=== PATIENT | male | born 1955 | race Caucasian/White ===

== ENCOUNTER 2016-08-03 15:29 | Emergency (ER) | payer OTHER ==
[~2016-08-03] VITALS: Ht 172.7 cm; Wt 68.5 kg
[~2016-08-03 15:29] MED LIST: FER325 PO; GLIP2.5T14 PO; LACT20SO2 PO; MTF1000T PO; PANT40TA3 PO; PROP20TA4 PO; RIFA550T4 PO; SPIR100T PO
[2016-08-03 16:17] VITALS: Ht 172.7 cm; Wt 68.5 kg
[2016-08-03] MEDS ORDERED: ALBUTEROL/IPRATROPIUM (NEB) 3 ML AMP HHN STA (17:43)
--- NOTE | 2016-08-03 17:56 | ERD ---
ER Documentation Chief Complaint Date/Time DATE: 08/03/16 TIME: 17:48 Chief Complaint SOB,HX OF ASTHMA HPI This patient is a 61-year-old male with history of hypertension, type 2 diabetes , asthma presenting to the emergency department for shortness of breath, wheezing, and chest pain ongoing intermittently for the past month but worsening over the past week. Additionally the patient reports productive cough of green phlegm as well as tactile fevers. The patient is taken no ibuprofen or Tylenol at home for symptom relief. The patient does have an albuterol inhaler which he has been using as needed for wheezing with mild relief. The patient denies any urinary symptoms, nausea, vomiting, diarrhea, or other symptoms at this time. ROS All systems reviewed and are negative except as per history of present illness. Medications Home Meds Active Scripts Glipizide XL* (Glipizide XL*) 2.5 Mg Tab.er.24, 2.5 MG PO DAILY for 30 Days, TAB Prov:PATTI HARRISON . 07/09/15 Metformin* (Glucophage*) 1,000 Mg Tablet, 1000 MG PO WITH BREAKFAST DINNE, #60 TAB Prov:PATTI HARRISON . 07/09/15 Pantoprazole* (Protonix*) 40 Mg Tablet.dr, 40 MG PO BID for 30 Days, TAB Prov:PATTI HARRISON . 07/09/15 Rifaximin* (Xifaxan*) 550 Mg Tablet, 550 MG PO BID for 30 Days, TAB 1 Refill Prov:PATTI HARRISON . 07/09/15 Lactulose* (Lactulose*) 20 Gm/30 Ml Soln, 20 GM PO Q8 for 30 Days Prov:PATIT HARRISON . 07/09/15 Ferrous Sulfate* (Ferrous Sulfate*) 325 Mg Tabec, 325 MG PO BID for 30 Days, TAB Prov:PATTI HARRISON . 07/09/15 Spironolactone* (Aldactone*) 100 Mg Tablet, 50 MG PO DAILY, #30 TAB Prov:PATTI HARRISON . 07/09/15 Reported Medications Propranolol Hcl* (Propranolol Hcl*) 20 Mg Tablet, 20 MG PO BID, TAB 07/07/15 Allergies Allergies: Coded Allergies: No Known Allergy (Unverified , 08/03/16) PMhx/Soc History of Surgery: Yes (nasal surgery 1983) Anesthesia Reaction: No Hx Neurological Disorder: No Hx Respiratory Disorders: Yes (asthma) Hx Cardiac Disorders: Yes (htn) Hx Psychiatric Problems: No Hx Miscellaneous Medical Probl: Yes (dm ) Hx Alcohol Use: No Hx Substance Use: Yes (1982) Hx Tobacco Use: No Smoking Status: Never smoker FmHx Noncontributory for chief complaint. Physical Exam Vitals Vital Signs Date Time Temp Pulse Resp B/P Pulse Ox O2 Delivery O2 Flow Rate FiO2 08/03/16 16:17 98.9 97 18 119/58 98 Physical Exam INITIAL VITAL SIGNS: Reviewed by me. GENERAL: Alert and interactive. No acute distress. HEAD: Head is normocephalic and atraumatic. EYES: EOMI. No scleral icterus. No conjunctival injection. ENT: Moist mucosa. NECK: Supple. Full range of motion. RESPIRATORY: Mild inspiratory wheezing noted in the left upper lung field. There are no rhonchi or crackles noted in all lung trammell. CV: Regular rate and rhythm. Normal S1 S2. No S3 or S4. No murmurs. ABDOMEN: Soft, non-distended, non-tender. No guarding. No rebound. No masses. EXTREMITIES: No deformity. SKIN: Warm and dry. NEUROLOGIC: Alert and oriented x 4. Speech is normal. Moves all extremities equally. No motor or sensory deficits noted. Results 24 hrs Current Medications Medications (Trade) Dose Ordered Sig/Halle Route PRN Reason Start Time Stop Time Status Last Admin Dose Admin Albuterol/ Ipratropium (Duoneb) 3 ml ONCE STAT HHN 08/03/16 17:43 08/03/16 17:47 DC Dexamethasone (Decadron) 10 mg ONCE ONCE IM 08/03/16 18:00 08/03/16 18:01 DC 08/03/16 17:53 Procedures/MDM 61-year-old male presents secondary to complaints of wheezing and asthma exacerbation. On physical examination the patient's vitals are within normal limits. The patient's O2 saturation is 98% on room air. I have ordered a chest x-ray and EKG looking for any signs of cardiopulmonary abnormalities or acute coronary ischemia. I have ordered a breathing treatment in the department and the patient was feeling improved afterwards. The primary diagnosis is asthma exacerbation. The patient was given 10 mg IM Decadron in the department. Radiology: Departure Diagnosis: Primary Impression: Asthma exacerbation Condition: Stable Patient Instructions: Asthma Additional Instructions: Follow-up with your primary care physician within 1 week. Return to the emergency department immediately should you have any new or worsening symptoms, uncontrolled fevers, or other unexplained symptoms. Take all medications as directed. DAVI OQUENDO PA-C Aug 03, 2016 17:56
[2016-08-03] MEDS ORDERED: DEXAMETHASONE 10 MG/ML 1 ML INJ IM ONE (18:00)
[2016-08-03] MEDS ORDERED: ALBUTEROL 0.5% (NEB) 2.5 MG/0.5 ML AMP INH STA (18:19)
[2016-08-03] MEDS ORDERED: IPRATROPIUM (NEB) 0.5 MG/2.5 ML AMP INH STA (18:19)
--- NOTE | 2016-08-03 18:32 | RADRPT ---
PROCEDURE: XR Chest AP portable CLINICAL INDICATION: Cough, wheezing TECHNIQUE: An AP portable radiograph of the chest was submitted. COMPARISON: None. FINDINGS: Support Hardware: None Cardiovascular: The heart is upper normal in size and the pulmonary vasculature is upper normal . Lung Trammell: Parahilar interstitial prominence is evident while the lung trammell are otherwise clear. Pleural Spaces: No pneumothorax or pleural effusion is identified. Osseous Structures: The osseous structures appear intact. Soft Tissues: The soft tissues appear unremarkable. IMPRESSION: 1. Parahilar interstitial prominence raising the possibility of asthma or viral or respiratory trac t infection. 2. Otherwise, unremarkable portable chest. Physician Stephen Date Time Electronically viewed and signed by Physician Stephen on 08/03/2016 18:32 /
[2016-08-03 18:39] LABS: BASOPHILS % 0.4 % (0.0-2.0); EOSINOPHILS # 0.5 10^3/ul (0.0-0.5); EOSINOPHILS % 9.6 % (0.0-7.0); HEMOGLOBIN 10.2 g/dl (14.0-18.0); LYMPHOCYTES # 1.3 10^3/ul (0.8-2.9); LYMPHOCYTES % 24.7 % (15.0-51.0); MEAN CORPUSCULAR HEMOGLOBIN 21.4 pg (29.0-33.0); MEAN CORPUSCULAR HGB CONC 31.9 g/dl (32.0-37.0); MEAN CORPUSCULAR VOLUME 67.2 fl (82.0-101.0); MEAN PLATELET VOLUME 8.2 fl (7.4-10.4); MONOCYTE # 0.5 10^3/ul (0.3-0.9); MONOCYTES % 9.8 % (0.0-11.0); NEUTROPHIL # 2.9 10^3/ul (1.6-7.5); NEUTROPHILS % 55.5 % (39.0-77.0); PLATELET COUNT 217 10^3/UL (140-440); RED BLOOD COUNT 4.75 10^6/ul (4.70-6.10); RED CELL DISTRIBUTION WIDTH 17.8 % (11.5-14.5); UNCORRECTED WBC 5.2 10^3/ul (4.8-10.8); WHITE BLOOD COUNT 5.2 10^3/ul (4.8-10.8)
[2016-08-03 18:40] LABS: ALBUMIN 3.9 g/dl (3.3-4.9)
[2016-08-03 18:41] LABS: POTASSIUM 5.1 mmol/L (3.5-5.1)
[2016-08-03 18:43] LABS: BILIRUBIN,INDIRECT 0.3 mg/dl (0-1.1); BILIRUBIN,TOTAL 0.3 mg/dl (0.2-1.3); CONDITION 1; CREATININE 0.58 mg/dl (0.61-1.24); LH ANALYZER COMMENTS 1; NUCLEATED RED BLOOD CELLS # 0.1 10^3/ul (0.0-0.0)
[2016-08-03 18:44] LABS: ALBUMIN/GLOBULIN RATIO 0.88; TOTAL PROTEIN 8.3 g/dl (6.1-8.1)
[2016-08-03 18:56] LABS: TROPONIN-I 0.015 ng/ml (0.00-0.12)
[2016-08-03] MEDS ORDERED: PRED20TA PO (19:12)
[2016-08-03] MEDS ORDERED: ALBU8.5H3 INH (19:12)
--- NOTE | 2016-08-03 19:18 | ERD ---
ER Documentation Chief Complaint Date/Time DATE: 08/03/16 TIME: 19:13 Chief Complaint SOB,HX OF ASTHMA HPI 61-year-old man with multiple medical conditions including asthma presents with shortness of breath 2 days. Patient ran out of his albuterol pump. He denies fevers or chills, no recent weight loss, no exertional chest pain, no calf or leg swelling, no abdominal pain, patient denies melena or blood per rectum. ROS All systems reviewed and are negative except as per history of present illness. Medications Home Meds Active Scripts Prednisone* (Prednisone*) 20 Mg Tab, 20 MG PO DAILY for 2 Days, TAB Prov:ADEN OSHEA MD 08/03/16 Albuterol Sulfate* (Proair HFA*) 8.5 Gm Hfa.aer.ad, 2 PUFF INH Q6H Y for WHEEZING AND SOB, #1 INHALER Prov:ADEN OSHEA MD 08/03/16 Glipizide XL* (Glipizide XL*) 2.5 Mg Tab.er.24, 2.5 MG PO DAILY for 30 Days, TAB Prov:PATTI HARRISON 07/09/15 Metformin* (Glucophage*) 1,000 Mg Tablet, 1000 MG PO WITH BREAKFAST DINNE, #60 TAB Prov:PATTI HARRISON 07/09/15 Pantoprazole* (Protonix*) 40 Mg Tablet.dr, 40 MG PO BID for 30 Days, TAB Prov:PATTI HARRISON 07/09/15 Rifaximin* (Xifaxan*) 550 Mg Tablet, 550 MG PO BID for 30 Days, TAB 1 Refill Prov:PATTI HARRISON 07/09/15 Lactulose* (Lactulose*) 20 Gm/30 Ml Soln, 20 GM PO Q8 for 30 Days Prov:PATTI HARRISON 07/09/15 Ferrous Sulfate* (Ferrous Sulfate*) 325 Mg Tabec, 325 MG PO BID for 30 Days, TAB Prov:PATTI HARRISON 07/09/15 Spironolactone* (Aldactone*) 100 Mg Tablet, 50 MG PO DAILY, #30 TAB Prov:PATTI HARRISON 07/09/15 Reported Medications Propranolol Hcl* (Propranolol Hcl*) 20 Mg Tablet, 20 MG PO BID, TAB 07/07/15 Allergies Allergies: Coded Allergies: No Known Allergy (Unverified , 08/03/16) PMhx/Soc Asthma, alcoholic cirrhosis, previous alcoholism, diabetes mellitus, hypertension, chronic transaminitis, anemia, erosive esophagitis and gastritis History of Surgery: Yes (nasal surgery 1983) Anesthesia Reaction: No Hx Neurological Disorder: No Hx Respiratory Disorders: Yes (asthma) Hx Cardiac Disorders: Yes (htn) Hx Psychiatric Problems: No Hx Miscellaneous Medical Probl: Yes (dm ) Hx Alcohol Use: No Hx Substance Use: Yes (1982) Hx Tobacco Use: No Smoking Status: Former smoker FmHx Family History: No diabetes Physical Exam Vitals Vital Signs Date Time Temp Pulse Resp B/P Pulse Ox O2 Delivery O2 Flow Rate FiO2 08/03/16 19:05 100 2.0 08/03/16 19:03 68 20 100 Nasal Cannula 2.0 08/03/16 16:17 98.9 97 18 119/58 98 Physical Exam GENERAL: Well-developed, well-nourished, well-hydrated, appears dehydrated. Afebrile HEENT: Dry mucous membranes, pink conjunctiva, no cervical spine tenderness or step-off deformities, no goiter, no jaundice or icterus, extraocular movements intact without pain. No submandibular induration, and no pharyngeal erythema NEURO: Alert and oriented 3, cranial nerves II through XII intact bilaterally, pupils equal round reactive to light, no focal deficits or facial asymmetry, sensation intact distally Strength 5/5 in upper and lower extremities bilaterally CARDIAC: Regular rate and rhythm, no murmurs rubs or gallops LUNGS: Dense wheezes bilaterally, no crackles or stridor ABDOMEN: Soft nontender, no guarding, no rigidity, no rebound, no psoas sign no obturator sign. Normoactive bowel sounds SKIN: Warm and dry to touch, no abrasions, contusions, or hematomas, no lacerations, no ecchymosis, no target lesions, and without ulcers EXTREMITIES: No clubbing cyanosis or edema, calves are bilaterally symmetrical, no Homans sign, no popliteal cord sign. Distal pulses equal and bilateral PSYCH: Normal affect without agitation or irritability Result Diagram: 08/03/161 08/03/16 1811 Results 24 hrs Laboratory Tests Test 08/03/16 18:11 Alanine Aminotransferase (ALT/SGPT) 120IU/L Albumin 3.9g/dl Albumin/Globulin Ratio 0.88 Alkaline Phosphatase 99IU/L Anion Gap 17 Aspartate Amino Transf (AST/SGOT) 108IU/L B-Type Natriuretic Peptide 57PG/ML Basophils # 0.010^3/ul Basophils % 0.4% Blood Morphology Comment Blood Urea Nitrogen 13mg/dl Calcium Level 9.0mg/dl Carbon Dioxide Level 28mmol/L Chloride Level 102mmol/L Creatinine 0.58mg/dl Direct Bilirubin 0.00mg/dl Eosinophils # 0.510^3/ul Eosinophils % 9.6% Globulin 4.40g/dl Glucose Level 234mg/dl Hematocrit 32.0% Hemoglobin 10.2g/dl Indirect Bilirubin 0.3mg/dl Lipase 92U/L Lymphocytes # 1.310^3/ul Lymphocytes % 24.7% Mean Corpuscular Hemoglobin 21.4pg Mean Corpuscular Hemoglobin Concent 31.9g/dl Mean Corpuscular Volume 67.2fl Mean Platelet Volume 8.2fl Monocytes # 0.510^3/ul Monocytes % 9.8% Neutrophils # 2.910^3/ul Neutrophils % 55.5% Nucleated Red Blood Cells # 0.110^3/ul Nucleated Red Blood Cells % 2.0/100WBC Platelet Count 01879^3/UL Potassium Level 5.1mmol/L Red Blood Count 4.7510^6/ul Red Cell Distribution Width 17.8% Sodium Level 142mmol/L Total Bilirubin 0.3mg/dl Total Protein 8.3g/dl Troponin I 0.015ng/ml White Blood Count 5.210^3/ul Current Medications Medications (Trade) Dose Ordered Sig/Halle Route PRN Reason Start Time Stop Time Status Last Admin Dose Admin Albuterol/ Ipratropium (Duoneb) 3 ml ONCE STAT HHN 08/03/16 17:43 08/03/16 18:21 DC Dexamethasone (Decadron) 10 mg ONCE ONCE IM 08/03/16 18:00 08/03/16 18:01 DC 08/03/16 17:53 Albuterol (Proventil 0.5% (Neb)) 10 mg ONCE STAT INH 08/03/16 18:19 08/03/16 18:21 DC 08/03/16 18:58 Ipratropium Alkol (Atrovent 0.02% (Neb)) 1 mg ONCE STAT INH 08/03/16 18:19 08/03/16 18:21 DC 08/03/16 18:58 Procedures/MDM IV line was established patient was placed on school bus monitor rhythm strip revealed a sinus rhythm at about 70 bpm with upright P and T waves. Patient was afebrile. I administered albuterol 10 mg via nebulizer, ipratropium 1 mg via nebulizer, and dexamethasone 10 mg intramuscular injection. Chest X-ray 1V Interpreted by me: Soft Tissue: No acute abnormalities Bones: No acute abnormalities Mediastinum/Cardiac Silhouette/Lungs: No acute abnormalities EKG performed, read by me revealed a normal sinus rhythm at 74 bpm, normal axis , narrow QRS complex with evidence of left ventricular hypertrophy in precordial leads. CBC revealed mild anemia with a hemoglobin of 10, electrolytes were unremarkable , liver function tests revealed transaminitis, BNP was low, troponin was negative. Lipase was normal. Pulmonary exam was repeated after medications were administered and just prior to discharge. Respiratory rate was 16 breaths per minute and normal, lung sounds were clear without wheezing. Vital signs remained normal. Differential diagnoses considered, included but not limited to acute coronary syndrome, pulmonary embolism, aortic dissection, abdominal aortic aneurysm, sepsis, stroke, meningitis, encephalitis, pneumonia, appendicitis, cholecystitis , bowel obstruction, pyelonephritis, nephrolithiasis, cystitis, as well as metabolic, hematologic, and electrolyte abnormalities. As well as abscess, cellulitis, fractures, and dislocations. Patient feels much better at this time, and vital signs are normal, symptoms have improved. I did give strict instructions to return to the ED if symptoms continue or worsen, patient will otherwise follow-up with primary care physician. Patient understood instructions and agreed to plan. Departure Diagnosis: Primary Impression: Asthma exacerbation Additional Impression: Dehydration Condition: Good Patient Instructions: Asthma Additional Instructions: Follow-up with your primary care physician within 1 week. Return to the emergency department immediately should you have any new or worsening symptoms, uncontrolled fevers, or other unexplained symptoms. Take all medications as directed. ADEN OSHEA MD Aug 03, 2016 19:18
[2016-08-03] MEDS ORDERED: OMEP20CA16 PO (19:23)
[2016-08-03] MEDS ORDERED: MOME13HF2 INHALATION (19:23)
[2016-08-03] MEDS ORDERED: FER325 PO (19:29)
[2016-08-03] MEDS ORDERED: PROP20TA4 PO (19:33)
[2016-08-03 20:01] VITALS: BP 109/56; PULSE 79; RESP 19; TEMP 98.6
== END 2016-08-03 20:02 | disposition home or self-care (01) ==
LOC: FTE 15:29 → E/R 20:02
DX: J45.901 Unspecified asthma with (acute) exacerbation (principal); E86.0 Dehydration; I10 Essential (primary) hypertension; E11.9 Type 2 diabetes mellitus without complications; Z79.84 Long term (current) use of oral hypoglycemic drugs; Z87.891 Personal history of nicotine dependence
CPT/HCPCS: 71010; 80053; 83690; 83880; 84484; 85025; 93005; 94644; J1100; Z7502; Z7610

== ENCOUNTER 2016-08-07 11:16 | Emergency (ER) | payer OTHER ==
[~2016-08-07] VITALS: Wt 74.5 kg
[~2016-08-07 11:16] MED LIST changes: +ALBU8.5H3 INH; -GLIP2.5T14 PO; -LACT20SO2 PO; +MOME13HF2 INHALATION; +OMEP20CA16 PO; -PANT40TA3 PO; +PRED20TA PO; -RIFA550T4 PO; -SPIR100T PO
[2016-08-07] MEDS ORDERED: SOD CHLORIDE 0.9% 1,000 ML IV STA (11:34)
[2016-08-07] MEDS ORDERED: ALBUTEROL 0.5% (NEB) 2.5 MG/0.5 ML AMP INH STA (11:34)
[2016-08-07 12:23] LABS: BASOPHIL # 0.1 10^3/ul (0.0-0.1); BASOPHILS % 0.9 % (0.0-2.0); EOSINOPHILS # 0.2 10^3/ul (0.0-0.5); EOSINOPHILS % 2.3 % (0.0-7.0); HEMATOCRIT 31.6 % (42.0-52.0); LYMPHOCYTES # 1.4 10^3/ul (0.8-2.9); LYMPHOCYTES % 19.1 % (15.0-51.0); MEAN CORPUSCULAR HGB CONC 31.5 g/dl (32.0-37.0); MEAN CORPUSCULAR VOLUME 66.5 fl (82.0-101.0); MEAN PLATELET VOLUME 9.5 fl (7.4-10.4); MONOCYTE # 0.9 10^3/ul (0.3-0.9); MONOCYTES % 11.5 % (0.0-11.0); NEUTROPHIL # 4.9 10^3/ul (1.6-7.5); NEUTROPHILS % 66.2 % (39.0-77.0); NUCLEATED RED BLOOD CELLS% 3.2 /100WBC (0.0-0.0); PLATELET COUNT 188 10^3/UL (140-440); RED BLOOD COUNT 4.75 10^6/ul (4.70-6.10); RED CELL DISTRIBUTION WIDTH 17.7 % (11.5-14.5); UNCORRECTED WBC 7.4 10^3/ul (4.8-10.8); WHITE BLOOD COUNT 7.4 10^3/ul (4.8-10.8)
[2016-08-07 12:27] LABS: ALBUMIN 3.7 g/dl (3.3-4.9); CHLORIDE 97 mmol/L (97-110)
[2016-08-07 12:28] LABS: POTASSIUM 4.4 mmol/L (3.5-5.1); SODIUM 136 mmol/L (135-144)
[2016-08-07 12:30] LABS: ALANINE AMINOTRANSFERASE 80 IU/L (13-69); ALBUMIN/GLOBULIN RATIO 0.88; ALKALINE PHOSPHATASE 117 IU/L (42-121); ANION GAP 15 (8-16); ASPARTATE AMINO TRANSFERASE 43 IU/L (15-46); BILIRUBIN,INDIRECT 0.5 mg/dl (0-1.1); BILIRUBIN,TOTAL 0.5 mg/dl (0.2-1.3); BLOOD UREA NITROGEN 11 mg/dl (7-20); CARBON DIOXIDE 28 mmol/L (21-31); CREATININE 0.55 mg/dl (0.61-1.24); GLUCOSE 384 mg/dl (70-220); TOTAL PROTEIN 7.9 g/dl (6.1-8.1)
[2016-08-07 12:32] LABS: NUCLEATED RED BLOOD CELLS # 0.2 10^3/ul (0.0-0.0)
[2016-08-07 12:33] LABS: CONDITION 1; LH ANALYZER COMMENTS 1; SUSPECT 1
[2016-08-07 12:44] LABS: TROPONIN-I < 0.012 ng/ml (0.00-0.12)
[2016-08-07] MEDS ORDERED: SOD CHLORIDE 0.9% 100 ML ONE (12:45)
[2016-08-07] MEDS ORDERED: IOHEXOL 100 ML ONE (12:45)
--- NOTE | 2016-08-07 13:43 | RADRPT ---
PROCEDURE: CTA Chest and pulmonary angiogram. CLINICAL INDICATION: Chest pain and shortness of breath. TECHNIQUE: CT scan of the chest and CT pulmonary angiogram was performed on a multidetector high-r [employer] CT scanner. High-resolution thin slice 2D coronal and sagittal imaging was obtained from the axial source images. Post processed 3-D images were not acquired. The patient was examined foll owing the uncomplicated intravenous administration of 75 cc of Omnipaque-[id number]. The images were review ed on a PACS workstation. The total exam CTDI equals 13.4 mGy and the total exam DLP equals 584 mGy- cm. COMPARISON: No prior studies are available for comparison. FINDINGS: CT chest: Patchy infiltrates in the anterior right upper lobe. There is plate-like atelectasis or linear scarring in the left lung apex. There is plate-like atelectasis or linear scarring in the superior segment of the left lower lobe. There is subtle, patchy infiltrate in the posterior left lower lobe. There is a 3.7 x 2.5 cm thin-walled cavitary lesion with air-fluid level in the inferior aspect of t he lingula of left upper lobe. There is no evidence of pleural effusion or pneumothorax. The central tracheobronchial tree is clear. The mediastinum is unremarkable without evidence for mass or lymphadenopathy. The heart size is normal without pericardial thickening or effusion. The axillary, subpectoral, and supraclavicular regions are unremarkable. Imaging of the upper abdomen shows no acute abnormality. Heterogeneous enhancement of the liver and spleen is likely due to early arterial phase enhancement There is a small hiatal hernia. The chest wall structures are unremarkable. There is an 8 mm low density focus with trabecular condensation in the inferior endplate of T10, lik jacqui a hemangioma. The osseous structures are otherwise unremarkable CT angiogram: The aorta is normal in caliber and configuration. There is no evidence of aortic aneurysm or dissection. No pulmonary artery filling defect is present to suggest pulmonary embolism. No adherent thrombus or pulmonary web is identified. The pulmonary arteries are normal in caliber and morphology. There is no evidence for pulmonary arterial hypertension. IMPRESSION: 1. No evidence of pulmonary embolism, aortic aneurysm or dissection. 2. 3.7 cm thin-walled cavitary lesion in the lingula of left upper lobe. Differential diagnosis fa vors granulomatous disease but also includes cavitary neoplasm and lung abscess. 3. Patchy bilateral upper lobe infiltrates. Differential diagnosis includes granulomatous disease and acute bacterial pneumonia. RPTAT: II .Geronimo Stanley MD, Date Time Electronically viewed and signed by .Geronimo Stanley MD, on 08/07/2016 13:42 .M/
[2016-08-07] MEDS ORDERED: AZIT500T3 PO (13:59)
[2016-08-07] MEDS ORDERED: CEFTRIAXONE 1 GM/50 ML (PMX) 50 ML IVPB ONE (14:00)
--- NOTE | 2016-08-07 14:07 | ERD ---
ER Documentation Chief Complaint Date/Time DATE: 08/07/16 TIME: 14:03 Chief Complaint chest pain and pressure for the past week. mild sob and tightness HPI This is a 61-year-old man presents with continued sharp nonexertional nonradiating chest pain and pressure which shortness of breath and wheezing. He does have a history of asthma and states this feels similar to his previous symptoms. He was seen and evaluated about 4 days ago in this emergency department on a workup including chest x-ray was completely negative, he was discharged after bronchodilator therapy and after his symptoms resolve. He states since discharge he did not fill the prescriptions that were given to him 4 days ago, he has had no fevers or chills, no vomiting or diarrhea, no dizziness or loss of consciousness, no headache or blurry vision, no calf or leg swelling. ROS All systems reviewed and are negative except as per history of present illness. Medications Home Meds Active Scripts Azithromycin* (Zithromax*) 500 Mg Tablet, 500 MG PO DAILY for 6 Days, TAB Prov:ADEN OSHEA MD 08/07/16 Albuterol Sulfate* (Proair HFA*) 8.5 Gm Hfa.aer.ad, 2 PUFF INH Q6H Y for WHEEZING AND SOB, #1 INHALER Prov:ADEN OSHEA MD 08/03/16 Metformin* (Glucophage*) 1,000 Mg Tablet, 1000 MG PO WITH BREAKFAST DINNE, #60 TAB Prov:PATTI HARRISON 07/09/15 Reported Medications Propranolol Hcl* (Propranolol Hcl*) 20 Mg Tablet, 20 MG PO BID, TAB 08/03/16 Ferrous Sulfate* (Ferrous Sulfate*) 325 Mg Tabec, 325 MG PO TID, TAB 08/03/16 Mometasone-Formoterol (Dulera) 100-5 Mcg - 13 Gm Hfa.aer.ad, 2 PUFFS INHALATION BID, #1 INHALER 08/03/16 Omeprazole* (Omeprazole*) 20 Mg Capsule.dr, 20 MG PO DAILY, #30 CAP 08/03/16 Discontinued Reported Medications Propranolol Hcl* (Propranolol Hcl*) 20 Mg Tablet, 20 MG PO BID, TAB 07/07/15 Discontinued Scripts Prednisone* (Prednisone*) 20 Mg Tab, 20 MG PO DAILY for 2 Days, TAB Prov:ADEN OSHEA MD 08/03/16 Glipizide XL* (Glipizide XL*) 2.5 Mg Tab.er.24, 2.5 MG PO DAILY for 30 Days, TAB Prov:PATTI HARRISON. 07/09/15 Pantoprazole* (Protonix*) 40 Mg Tablet.dr, 40 MG PO BID for 30 Days, TAB Prov:PATTI HARRISON . 07/09/15 Rifaximin* (Xifaxan*) 550 Mg Tablet, 550 MG PO BID for 30 Days, TAB 1 Refill Prov:PATTI HARRISON 07/09/15 Lactulose* (Lactulose*) 20 Gm/30 Ml Soln, 20 GM PO Q8 for 30 Days Prov:PATTI HARRISON 07/09/15 Ferrous Sulfate* (Ferrous Sulfate*) 325 Mg Tabec, 325 MG PO BID for 30 Days, TAB Prov:PATTI HARRISON 07/09/15 Spironolactone* (Aldactone*) 100 Mg Tablet, 50 MG PO DAILY, #30 TAB Prov:PATTI HARRISON. 07/09/15 Allergies Allergies: Coded Allergies: No Known Allergy (Unverified , 08/07/16) PMhx/Soc Asthma, hypertension, diabetes mellitus, alcoholism, cirrhosis, chronic gastritis and esophagitis, medication noncompliance History of Surgery: Yes (nasal surgery 1983) Anesthesia Reaction: No Hx Neurological Disorder: No Hx Respiratory Disorders: Yes (asthma) Hx Cardiac Disorders: Yes (htn) Hx Psychiatric Problems: No Hx Miscellaneous Medical Probl: Yes (dm ) Hx Alcohol Use: No Hx Substance Use: Yes (1982) Hx Tobacco Use: No Smoking Status: Never smoker FmHx Family History: No diabetes Physical Exam Vitals Vital Signs Date Time Temp Pulse Resp B/P Pulse Ox O2 Delivery O2 Flow Rate FiO2 08/07/16 14:08 80 18 140/80 98 08/07/16 13:13 Nasal Cannula 08/07/16 11:51 83 26 99 21 08/07/16 11:22 98.5 89 20 132/76 100 Physical Exam GENERAL: Well-developed, well-nourished, well-hydrated, in no apparent distress , looks nontoxic in appearance. Afebrile HEENT: Moist mucous membranes, pink conjunctiva, no cervical spine tenderness or step-off deformities, no goiter, no jaundice or icterus, extraocular movements intact without pain. No submandibular induration, and no pharyngeal erythema NEURO: Alert and oriented 3, cranial nerves II through XII intact bilaterally, pupils equal round reactive to light, no focal deficits or facial asymmetry, sensation intact distally Strength 5/5 in upper and lower extremities bilaterally CARDIAC: Regular rate and rhythm, no murmurs rubs or gallops LUNGS: Mild wheezing bilaterally, no crackles or stridor ABDOMEN: Soft nontender, no guarding, no rigidity, no rebound, no psoas sign no obturator sign. Normoactive bowel sounds SKIN: Warm and dry to touch, no abrasions, contusions, or hematomas, no lacerations, no ecchymosis, no target lesions, and without ulcers EXTREMITIES: No clubbing cyanosis or edema, calves are bilaterally symmetrical, no Homans sign, no popliteal cord sign. Distal pulses equal and bilateral PSYCH: Normal affect without agitation or irritability Result Diagram: 08/07/16 1210 08/07/16 1210 Results 24 hrs Laboratory Tests Test 08/07/16 12:10 Alanine Aminotransferase (ALT/SGPT) 80IU/L Albumin 3.7g/dl Albumin/Globulin Ratio 0.88 Alkaline Phosphatase 117IU/L Anion Gap 15 Aspartate Amino Transf (AST/SGOT) 43IU/L Basophils # 0.110^3/ul Basophils % 0.9% Blood Morphology Comment Blood Urea Nitrogen 11mg/dl Calcium Level 9.0mg/dl Carbon Dioxide Level 28mmol/L Chloride Level 97mmol/L Creatinine 0.55mg/dl Direct Bilirubin 0.00mg/dl Eosinophils # 0.210^3/ul Eosinophils % 2.3% Globulin 4.20g/dl Glucose Level 384mg/dl Hematocrit 31.6% Hemoglobin 10.0g/dl Indirect Bilirubin 0.5mg/dl Lipase 99U/L Lymphocytes # 1.410^3/ul Lymphocytes % 19.1% Mean Corpuscular Hemoglobin 21.0pg Mean Corpuscular Hemoglobin Concent 31.5g/dl Mean Corpuscular Volume 66.5fl Mean Platelet Volume 9.5fl Monocytes # 0.910^3/ul Monocytes % 11.5% Neutrophils # 4.910^3/ul Neutrophils % 66.2% Nucleated Red Blood Cells # 0.210^3/ul Nucleated Red Blood Cells % 3.2/100WBC Platelet Count 46280^3/UL Potassium Level 4.4mmol/L Red Blood Count 4.7510^6/ul Red Cell Distribution Width 17.7% Sodium Level 136mmol/L Total Bilirubin 0.5mg/dl Total Protein 7.9g/dl Troponin I < 0.012ng/ml White Blood Count 7.410^3/ul Current Medications Medications (Trade) Dose Ordered Sig/Halle Route PRN Reason Start Time Stop Time Status Last Admin Dose Admin Albuterol 10 mg 10 mg ONCE STAT INH 08/07/16 11:34 08/07/16 13:52 DC 08/07/16 11:51 Sodium Chloride 1,000 ml @ 1,000 mls/hr Q1H STAT IV 08/07/16 11:34 08/07/16 13:53 DC 08/07/16 12:24 Iohexol 100 ml @ ud STK-MED ONCE .ROUTE 08/07/16 12:45 08/07/16 12:46 DC 08/07/16 13:09 Sodium Chloride 100 ml @ ud STK-MED ONCE .ROUTE 08/07/16 12:45 08/07/16 12:46 DC 08/07/16 13:09 Ceftriaxone Sodium (Rocephin) 50 ml @ 100 mls/hr ONCE ONCE IVPB 08/07/16 14:00 08/07/16 14:29 DC 08/07/16 14:03 Procedures/MDM IV line was established patient was placed on potline monitor rhythm strip revealed a sinus rhythm at about 80 bpm with upright P and T waves. Patient was afebrile. EKG performed, read by me revealed a normal sinus rhythm 87 bpm, normal axis, narrow QRS complex with evidence of left ventricular hypertrophy in precordial leads and peak T waves, although this is unchanged from his previous EKG. I reviewed the chest x-ray which was performed just 4 days ago, it was fairly unremarkable without acute infiltrates or pneumothorax. CT angiogram of the chest was performed there was no acute pulmonary embolism although there was diffuse granulomatous disease and questionable infiltrates bilaterally in the upper lung zones. I have low suspicion for acute bacterial pneumonia although given his past medical history and the fact that he has continued pulmonary symptoms, and this is his second visit over the last 4 days I will treat him as an outpatient with oral antibiotics CURB 65 Severity Score = 0. Placing the patient in a low risk group with a 30 day mortality rate of about 0.6%, which is a good indicator that the patient will benefit from outpatient management and oral antibiotics. CBC was unremarkable, electrolyte revealed a BUN/creatinine of 11/0.6, blood sugar elevated at 384, liver function tests were normal, troponin was negative. I treated him here with 1 L normal saline intravenously, albuterol 10 mg via nebulizer, as well as ceftriaxone 1 g IV. Patient can be managed as an outpatient and I recommended he fill the prescriptions that were provided to him 4 days ago and fill the prescriptions given to him today. We will manage him with outpatient antibiotics Differential diagnoses considered, included but not limited to acute coronary syndrome, pulmonary embolism, aortic dissection, abdominal aortic aneurysm, sepsis, stroke, meningitis, encephalitis, pneumonia, appendicitis, cholecystitis , bowel obstruction, pyelonephritis, nephrolithiasis, cystitis, as well as metabolic, hematologic, and electrolyte abnormalities. As well as abscess, cellulitis, fractures, and dislocations. Patient feels much better at this time, and vital signs are normal, symptoms have improved. I did give strict instructions to return to the ED if symptoms continue or worsen, patient will otherwise follow-up with primary care physician. Patient understood instructions and agreed to plan. Departure Diagnosis: Primary Impression: Pneumonia Pneumonia type: due to unspecified organism Laterality: bilateral Lung location: upper lobe of lung Qualified Code: J18.9 - Pneumonia of both upper lobes due to infectious organism Additional Impressions: Asthma Asthma severity: moderate persistent Asthma complication type: with acute exacerbation Qualified Code: J45.41 - Moderate persistent asthma with acute exacerbation Dehydration Condition: Good Patient Instructions: Asthma, Acute (Adult), Pneumonia (Adult) ADEN OSHEA MD Aug 07, 2016 14:07
[2016-08-07 14:08] VITALS: BP 140/80; PULSE 80; RESP 18
== END 2016-08-07 18:00 | disposition home or self-care (01) ==
LOC: E/R 11:16
DX: J18.9 Pneumonia, unspecified organism (principal); J45.41 Moderate persistent asthma with (acute) exacerbation; E86.0 Dehydration; I10 Essential (primary) hypertension; E11.9 Type 2 diabetes mellitus without complications; Z79.84 Long term (current) use of oral hypoglycemic drugs
CPT/HCPCS: 36415; 71275; 80053; 83690; 84484; 85025; 93005; 94644; 96374; J0696; J7030; Q9967; Z7502; Z7610

== ENCOUNTER 2016-08-17 08:44 | Emergency (ER) | payer OTHER ==
[~2016-08-17] VITALS: Wt 72.5 kg
[~2016-08-17 08:44] MED LIST changes: +AZIT500T3 PO; -PRED20TA PO
[2016-08-17] MEDS ORDERED: METHYLPRED. NA SUCC 250 MG in DEXTROSE 5% 50 ML IV ONE (09:30)
[2016-08-17] MEDS ORDERED: ALBUTEROL 0.083% (NEB) 2.5 MG/3 ML AMP HHN ONE ×2 (09:30→11:00)
[2016-08-17] MEDS ORDERED: IPRATROPIUM (NEB) 0.5 MG/2.5 ML AMP HHN ONE ×2 (09:30→11:00)
--- NOTE | 2016-08-17 11:41 | RADRPT ---
PROCEDURE: XR Chest. CLINICAL INDICATION: Cough and wheezing TECHNIQUE: AP portable chest COMPARISON: None. FINDINGS: The cardiomediastinal silhouette is within normal limits of size . Increased perihilar interstitial markings , right upper lobe airspace opacity and patchy left suprahilar focal opacity . No pleural effusion. These findings are most compatible with resolving but persistent air space dis ease. continued follow-up is recommended. No pneumothorax. The osseous structures and soft tissues are unremarkable. IMPRESSION: 1. Persistent bilateral gisela hilar interstitial and alveolar air space disease. RPTAT:AAJJ Norma Mead Physician Date Time Electronically viewed and signed by Physician Blanquita on 08/17/2016 11:41 ARILIS/
[2016-08-17] MEDS ORDERED: ALBU8.5H3 INH (12:06)
[2016-08-17] MEDS ORDERED: PRED20TA PO (12:06)
[2016-08-17] MEDS ORDERED: LEVO750T25 PO (12:06)
[2016-08-17 12:23] VITALS: BP 140/78; PULSE 80; RESP 20
--- NOTE | 2016-08-17 14:09 | ERD ---
DATE OF SERVICE: 08/17/2016 HISTORY OF PRESENT ILLNESS: The patient is a 61-year-old male complaining of shortness breath and w heezing that started last week. He has been taking azithromycin for possible pneumonia. He has bee n continued taking medication. He states he uses an inhaler, it gets worse at night. He has had a dry cough. No fevers. Denies any hemoptysis. No pleuritic chest pain. No leg swelling. PAST MEDICAL HISTORY: Diabetes, hypertension, asthma. ALLERGIES TO MEDICATIONS: DENIES. SURGICAL HISTORY: He has had some sinus surgery. SOCIAL HISTORY: Denies. REVIEW OF SYSTEMS: A 12-point review of systems was done. Refer to HPI for positives, all other sy stems negative. PHYSICAL EXAMINATION VITAL SIGNS: Temperature is 98.3, pulse 98, blood pressure is 120/63, respiratory rate 24, O2 satur ation 97% on room air. Pain intensity is 0/10. GENERAL: The patient is well-appearing, well-nourished, no acute distress. CHEST: The patient has wheezing in all lung trammell. There is no focal rhonchi, no retractions. No stridor. HEART: Regular rate and rhythm. No murmurs, clicks, rubs or gallops. No S3 or S4. EMERGENCY ROOM COURSE: The patient had a 1-view chest x-ray done in the ER. The patient's chest x- ray showed persistent bilateral perihilar interstitial and alveolar airspace disease. The patient r eceived an albuterol and Atrovent breathing treatment with IV injection of Solu-Medrol. Upon reeval uation, the patient's symptoms are still persistent. He had continued wheezing; however, I gave ano ther breathing treatment and symptoms improved. DIAGNOSES: 1. Asthma exacerbation. 2. Underlying pneumonia. MEDICAL DECISION MAKING: The patient will be treated with a different antibiotic and given steroids . The patient was saturating within normal limits and did not appear to be in respiratory distress or hypoxic. The patient was stable at the time of reevaluation and was stable for discharge. This case was also evaluated by Dr. Frazier prior to discharge, and Dr. Frazier agreed with patient's disch arge. DISCHARGE: The patient is discharged stable. The patient is given a prescription for Levaquin, pre dnisone and albuterol, and told to follow up with primary care within 1 to 2 days for reevaluation. The patient was told if symptoms progress or worsen, to return to the ER. All other questions answ ered at time of discharge. Discharge summary given at the time of departure. The patient understoo d and complied with plan. Dictated By: GALLITO ROMAN for EMILIA LUDWIG/MACY Conf#: [id number] DID#: [id number]
== END 2016-08-17 12:27 | disposition home or self-care (01) ==
LOC: FTE 08:44
DX: J45.901 Unspecified asthma with (acute) exacerbation (principal); J18.9 Pneumonia, unspecified organism; E11.9 Type 2 diabetes mellitus without complications; I10 Essential (primary) hypertension
CPT/HCPCS: 71010; 94640; 94664; 96374; J2920; Z7502; Z7610; J2930

== ENCOUNTER → 2016-08-31 | Emergency (ER) | payer SELFPAY ==
[~2016-08-31] VITALS: Wt 72.5 kg
[~2016-08-31] MED LIST changes: +LEVO750T25 PO; +PRED20TA PO
== END | disposition left against medical advice (07) ==
LOC: FTE 16:15
DX: Z53.21 Procedure and treatment not carried out due to patient leaving prior to being seen by health care provider (principal)

== ENCOUNTER 2017-01-21 21:33 | Inpatient (IN) | END 2017-01-25 13:51 | disposition home or self-care (01) | DRG 812 | DX: D64.9 Anemia, unspecified (principal); E11.8 Type 2 diabetes mellitus with unspecified complications; K74.69 Other cirrhosis of liver; R60.0 Localized edema; I10 Essential (primary) hypertension; Z79.4 Long term (current) use of insulin; D63.8 Anemia in other chronic diseases classified elsewhere; B18.2 Chronic viral hepatitis C; K29.70 Gastritis, unspecified, without bleeding; B19.20 Unspecified viral hepatitis C without hepatic coma; F11.21 Opioid dependence, in remission; K64.8 Other hemorrhoids; E11.9 Type 2 diabetes mellitus without complications ==

== ENCOUNTER 2017-10-18 12:53 | Inpatient (IN) | END 2017-10-20 14:45 | disposition left against medical advice (07) | DRG 812 ==

== ENCOUNTER 2017-11-20 15:12 | Emergency (ER) | END 2017-11-20 20:45 | disposition home or self-care (01) ==

== ENCOUNTER 2017-12-12 22:40 | Inpatient (IN) | END 2017-12-15 16:50 | disposition home or self-care (01) | DRG 479 ==

== ENCOUNTER 2018-01-01 13:11 | Emergency (ER) | END 2018-01-01 15:14 | disposition home or self-care (01) ==

== ENCOUNTER 2018-01-31 19:16 | Emergency (ER) | END 2018-02-01 02:12 | disposition home or self-care (01) ==

== ENCOUNTER 2018-02-19 10:58 | Emergency (ER) | END 2018-02-19 15:11 | disposition home or self-care (01) ==

== ENCOUNTER 2018-05-23 17:08 | Emergency (ER) | END 2018-05-23 20:10 | disposition home or self-care (01) ==

== ENCOUNTER 2018-09-09 13:30 | Observation (INO) | payer OTHER ==
[~2018-09-09] VITALS: Ht 182.9 cm; Wt 78.9 kg
[~2018-09-09 13:30] MED LIST changes: +ALBU2.5V3 NEB; -ALBU8.5H3 INH; +ALBU8.5H8 INH; +ALPR0.5T PO; +ALPR0.5T6 PO; -AZIT500T3 PO; +DOCU-144 PO; +FURO-110 PO; -LEVO750T25 PO; +METF-849 PO; -MOME13HF2 INHALATION; -MTF1000T PO; +NEBU-113 MC; -OMEP20CA16 PO; +PANT40TA3 PO; -PROP20TA4 PO
[2018-09-09] MEDS ORDERED: IPRATROPIUM (NEB) 0.5 MG/2.5 ML AMP INH STA (15:25)
[2018-09-09] MEDS ORDERED: SOD CHLORIDE 0.9% 500 ML IV STA (15:25)
[2018-09-09] MEDS ORDERED: ALBUTEROL 0.5% (NEB) 2.5 MG/0.5 ML AMP INH STA (15:25)
--- NOTE | 2018-09-09 15:32 | ERD ---
ER Documentation Chief Complaint Chief Complaint SOB WITH CHRONIC COUGH & PALE SKIN, + WEAKNESS X 1 WEEK HPI This is a 63-year-old male that has a known history of asthma diabetes hypertension and anemia. The patient indicates that 1 month ago he was admitted to [facility] and had a blood transfusion. He states he has no history of upper or lower gastrointestinal bleeding. He does indicate for the past week he has been having a productive cough with difficulty breathing. He did not have an albuterol inhaler and therefore no rescue medications or bronchodilators were utilized prior to arrival. He states the cough is a whitish sputum color. He said no fevers no shaking or chills. He denies any history of tobacco. He states he is never required intubation in the past. He has been hospitalized for his asthma in the past year. He states he has no swelling of his lower extremities. He does have generalized weakness. He has no hemoptysis no hematemesis or melanotic stools. ROS All systems reviewed and are negative except as per history of present illness. Medications Home Meds Reported Medications Pantoprazole* (Protonix*) 40 Mg Tablet.dr, 40 MG PO DAILY, TAB 09/09/18 Metformin Hcl* (Metformin Hcl*) 500 Mg Tablet, 500 MG PO WITH BREAKFAST DINNE, #60 TAB 09/09/18 Discontinued Scripts Pantoprazole* (Protonix*) 40 Mg Tablet.dr, 40 MG PO DAILY for 30 Days, TAB 3 Refills Prov:NASRIN NEGRON MD 07/31/18 Nebulizer (Aeroneb Go Nebuliser) 1 Each Each, EACH MC, #1 Prov:JON QUEZADA PA-C 07/08/18 Albuterol Sulfate* (Albuterol Sulfate* Neb) 0.083%-3 Ml Neb, 2.5 MG NEB Q4 PRN for SHORTNESS OF BREATH, #30 EA Prov:JON QUEZADA PA-C 07/08/18 Metformin* (Glucophage*) 500 Mg Tab, 500 MG PO BID, #30 TAB Prov:JON QUEZADA PA-C 07/08/18 Albuterol Sulfate* (Proair HFA*) 8.5 Gm Hfa.aer.ad, 2 PUFF INH Q4H PRN for WHEEZING AND SOB, #1 INHALER Prov:JON QUEZADA PA-C 07/08/18 Prednisone* (Prednisone*) 20 Mg Tab, 40 MG PO DAILY for 4 Days, TAB Prov:LAXMI CASTELLON MD 05/23/18 Albuterol Sulfate* (Proair HFA*) 8.5 Gm Hfa.aer.ad, 2 PUFF INH Q4H PRN for WHEEZING AND SOB, #1 INHALER Prov:LAXMI CASTELLON MD 05/23/18 Docusate Sodium* (Colace*) 100 Mg Capsule, 100 MG PO TID PRN for CONSTIPATION, #30 CAP Prov:JON QUEZADA PA-C 02/19/18 Ferrous Sulfate* (Ferrous Sulfate*) 325 Mg Tabec, 325 MG PO DAILY, #30 TAB Prov:JON QUEZADA PA-C 02/19/18 Alprazolam* (Alprazolam*) 0.5 Mg Tablet, 0.5 MG PO Q8H PRN for ANXIETY, #10 TAB Prov:JON QUEZADA PA-C 02/19/18 Alprazolam* (Xanax*) 0.5 Mg Tab, 0.5 MG PO Q8H PRN for ANXIETY, #20 TAB Prov:HARMONY SOLORIO DO 02/01/18 Furosemide* (Lasix*) 20 Mg Tablet, 20 MG PO DAILY for 14 Days, TAB Prov:CARMEL APONTE 01/24/17 Allergies Allergies: Coded Allergies: No Known Allergy (Unverified , 09/09/18) PMhx/Soc History of Surgery: Yes (rt ankle surgery) Anesthesia Reaction: No Hx Neurological Disorder: No Hx Respiratory Disorders: Yes (asthma) Hx Cardiac Disorders: Yes (HTN) Hx Psychiatric Problems: No Hx Miscellaneous Medical Probl: Yes (anemia requiring blood transfusion in the past) Hx Alcohol Use: Yes Hx Substance Use: No Hx Tobacco Use: No Smoking Status: Never smoker Physical Exam Vitals Vital Signs Date Temp Pulse Resp B/P (MAP) Pulse Ox O2 O2 Flow FiO2 Time Delivery Rate 09/09/18 90 14 100 21 15:40 09/09/18 Nasal 2 15:30 Cannula 09/09/18 93 18 110/56 100 Nasal 2.0 15:15 (74) Cannula 09/09/18 99.9 108 22 154/69 95 14:21 (97) Physical Exam Constitutional:Well-developed. Well-nourished. HEENT:Normocephalic. Atraumatic.Pupils were equal round reactive to light. Moist mucous membranes.No tonsillar exudates. Conjunctival pallor Neck: No nuchal rigidity. No lymphadenopathy. No posterior cervical spine tenderness or step-offs. Respiratory: Not using accessory muscles of respiration.wheezing on end auscultation bilaterally. Tachypneic. Unable to speak more than 2 words at a time before becoming short of breath. Cardiovascular: Regular rate regular rhythm.No murmurs. No rubs were appreciated.S1, S2 normal. Distal pulses are palpable 2+ bilaterally. GI: Abdomen was soft. Nontender. Non Distended. No pulsatile abdominal masses or bruits. No rebound. No guarding. Bowel sounds were present and normal. Muscle skeletal: Full range of motion of both the upper and lower extremities bilaterally.Normal muscle tone.No assymetrical calf tenderness or swelling. Skin: Diffuse pallor. no petechia, no purpura. No lesions on the palms or the soles of the feet. No maculopapular rash. NEURO: Patient was alert, awake, orientated x3.No facial droop. Gait observed and normal with no ataxia.Speech had regular rate and rhythm. No focal neurological deficits. Result Diagram: 09/09/18 1538 09/09/18 1539 Results 24 hrs Laboratory Tests Test 09/09/18 15:38 09/09/18 15:39 09/09/18 15:42 White Blood Count 4.9 10^3/ul Red Blood Count 2.02 10^6/ul Hemoglobin 3.6 g/dl Hematocrit 13.9 % Mean Corpuscular Volume 68.8 fl Mean Corpuscular Hemoglobin 17.8 pg Mean Corpuscular 25.9 g/dl Hemoglobin Concent Red Cell Distribution Width 23.7 % Platelet Count 153 10^3/UL Mean Platelet Volume 10.2 fl Immature Granulocytes % 0.800 % Neutrophils % 60.7 % Lymphocytes % 16.9 % Monocytes % 11.5 % Eosinophils % 10.1 % Basophils % 0.0 % Nucleated Red Blood Cells % 0.4 /100WBC Immature Granulocytes # 0.040 10^3/ul Neutrophils # 2.9 10^3/ul Lymphocytes # 0.8 10^3/ul Monocytes # 0.6 10^3/ul Eosinophils # 0.5 10^3/ul Basophils # 0.0 10^3/ul Nucleated Red Blood Cells # 0.0 10^3/ul Iron Level 19 ug/dl Total Iron Binding Capacity 329 ug/dl Percent Iron Saturation 6 % SAT Sodium Level 137 mmol/L Potassium Level 4.7 mmol/L Chloride Level 103 mmol/L Carbon Dioxide Level 27 mmol/L Anion Gap 7 Blood Urea Nitrogen 11 mg/dl Creatinine 0.65 mg/dl Est Glomerular Filtrat > 60 mL/min Rate mL/min Glucose Level 145 mg/dl POC Venous Lactate 1.9 mmol/L Calcium Level 8.2 mg/dl Ferritin 4.5 ng/ml Total Bilirubin 0.7 mg/dl Direct Bilirubin 0.00 mg/dl Indirect Bilirubin 0.7 mg/dl Aspartate Amino 35 IU/L Transf (AST/SGOT) Alanine 29 IU/L Aminotransferase (ALT/SGPT) Alkaline Phosphatase 86 IU/L Lactate Dehydrogenase 496 IU/L Troponin I < 0.012 ng/ml B-Type Natriuretic Peptide 689 PG/ML Total Protein 7.2 g/dl Albumin 2.9 g/dl Globulin 4.30 g/dl Albumin/Globulin Ratio 0.67 Urine Color YELLOW Urine Clarity CLEAR Urine pH 6.0 Urine Specific [place] 1.014 Urine Ketones NEGATIVE mg/dL Urine Nitrite NEGATIVE mg/dL Urine Bilirubin NEGATIVE mg/dL Urine Urobilinogen 2+ mg/dL Urine Leukocyte Esterase TRACE Malachi/ul Urine Microscopic RBC 0 /HPF Urine Microscopic WBC 1 /HPF Urine Hemoglobin NEGATIVE mg/dL Urine Glucose NEGATIVE mg/dL Urine Total Protein NEGATIVE mg/dl Current Medications Medications Dose Sig/Halle Start Time Status Last (Trade) Ordered Route PRN Stop Time Admin Dose Reason Admin Albuterol 10 mg ONCE STAT 09/09/18 DC 09/09/18 (Proventil INH 15:25 15:36 0.5% (Neb)) 09/09/18 15:28 Ipratropium 1 mg ONCE STAT 09/09/18 DC 09/09/18 [place] INH 15:25 15:36 (Atrovent 09/09/18 15:28 0.02% (Neb)) Sodium 500 ml @ Q1H STAT 09/09/18 DC 09/09/18 Chloride 500 mls/hr IV 15:25 15:49 09/09/18 16:24 Procedures/MDM The patient presented to the emergency department with dyspnea. My differential diagnosis included but was not limited to upper airway obstruction, CHF, pulmonary embolism, cardiac ischemia, pneumonia, pneumothorax, anemia, drug overdose, pulmonary edema, COPD or asthma. The patient was admitted placed on a road crossing guard continuous pulse oximetry and IV access was established by nursing. The patient was typed and crossed as the patient did have significant pallor with concerns of severe anemia and a history of requiring blood transfusions in the past. With respect to the patient's dyspnea I did feel this was an exacerbation of his asthma. He received continuous nebulizer treatments of albuterol and Atrovent. Steroids were not given as the patient has a history of diabetes which could cause subsequent hyperglycemia. 1 view chest radiograph were reviewed by myself the radiologist indicate the following: Increased interstitial lung markings with Ally B lines and tiny right pleural effusion. Cardiomegaly. Question interstitial edema versus interstitial pneumonia. Blood cultures and urine cultures were obtained. The patient had no evidence of urinary tract infection. My clinical suspicion was low for pneumonia. And therefore did not start antibiotics. 12 Lead EKG tracing ordered and reviewed by myself showed: Sinus bradycardia 49 bpm and no arrhythmia. AR interval normal. QRS duration widened at 136 ms with a right bundle branch block No ST segment elevation No ST segment depression. No changes consistent with acute ischemia. The patient had conjunctival pallor and significant anemia with a hemoglobin of 3.5. The patient was typed and crossed and given 2 units of packed red blood cells. The patient had recently been admitted to [facility] roughly 1 month ago on July 30, 2018 where he underwent a blood transfusion for 6 units to treat his microcytic anemia. He had been seen by Dr. Morin and it was documented the patient had undergone multiple endoscopies at all a [facility] as well as [facility] all of which were nondiagnostic. The patient will be admitted in serious condition under the care of Dr. Hopkins to continue blood transfusion for severe symptomatic anemia and an asthma exacerbation Departure Diagnosis: Primary Impression: Asthma Asthma severity: moderate Asthma persistence: persistent Asthma complication type: unspecified Qualified Codes: J45.40 - Moderate persistent asthma, uncomplicated Additional Impression: Microcytic anemia Condition: Serious HARPAL BAUGH MD Sep 09, 2018 15:32
[2018-09-09] MEDS ORDERED: METF500T24 PO (16:20)
[2018-09-09] MEDS ORDERED: PANT40TA3 PO (16:21)
[2018-09-09] MEDS ORDERED: ACETAMINOPHEN 325 MG TAB PO PRN (18:30)
[2018-09-09] MEDS ORDERED: ONDANSETRON 4 MG INJ IV PRN (18:30)
[2018-09-09] MEDS ORDERED: BENZONATATE 100 MG CAP PO ONE (20:00)
[2018-09-09 21:02] VITALS: PULSE 100
[2018-09-09] MEDS ORDERED: SOD CHLORIDE 0.9% 250 ML IV* ONE (22:05)
[2018-09-09] MEDS ORDERED: ZOLPIDEM 5 MG TAB PO PRN (22:30)
[2018-09-09 22:45] VITALS: BP 159/78; RESP 20
[2018-09-09 22:57] VITALS: Ht 182.9 cm; Wt 78.9 kg
[2018-09-10] VITALS (12 sets, daily range): BP systolic 128–169; BP diastolic 58–85; PULSE 74–95; RESP 18–20
[2018-09-10] MEDS: ALBUTEROL/IPRATROPIUM (NEB) 3 ML AMP HHN PRN ×2 (00:36→18:12)
[2018-09-10] MEDS ORDERED: METHADONE 10 MG TAB PO ONE (09:00)
[2018-09-10] MEDS ORDERED: PANTOPRAZOLE (EC) 40 MG TAB PO SCH (09:00)
--- NOTE | 2018-09-10 09:01 | PDOCDIS ---
Discharge Instructions CONDITION [id number] Patient Condition: [id number] Good HOME CARE INSTRUCTIONS: [id number] Diet Instructions: [id number] [id number] Special Diet: Ghtdg3q diabetic ACTIVITY: [id number] Activity Restrictions: [id number] No Restrictions FOLLOW UP/APPOINTMENTS Follow-up Plan pcp 1 week ENT 1 week NASRIN NEGRON MD Sep 10, 2018 09:01
--- NOTE | 2018-09-10 10:48 | HP ---
DATE OF ADMISSION: 09/09/2018 CHIEF COMPLAINT: Shortness of breath and generalized weakness x1 week. HISTORY OF PRESENT ILLNESS: A 63-year-old male with a previous history of profound anemia, presented to emergency room with complaint of shortness of breath and generalized weakness. The patient denie d any hematemesis. No bright red blood per rectum or melena. However, he reports episodes of epista xis. Initial evaluation revealed hemoglobin of 3.6. The patient has had multiple GI evaluations in the past including EGD and colonoscopy. No lesions were ever identified. The patient was admitted i n the early part of July 2018 with similar presentation and profound anemia. PAST MEDICAL HISTORY: 1. Type 2 diabetes mellitus. 2. Chronic anemia. MEDICATIONS PRIOR TO ADMISSION: 1. Protonix 40 mg daily. 2. Metformin 500 mg b.i.d. SOCIAL HISTORY: The patient denies tobacco or alcohol use. PHYSICAL EXAMINATION: GENERAL: Well-developed, well-nourished male who is in no apparent distress. VITAL SIGNS: Stable. He is afebrile. HEENT: Extraocular muscles are intact. Pupils are equal and reactive to light bilaterally. Sclerae are anicteric. Oropharynx is clear and moist. NECK: Supple, no JVD, no carotid bruits. LUNGS: Clear to auscultation bilaterally. CARDIAC: Regular rate and rhythm. No murmurs or gallops. ABDOMEN: Soft, nontender, nondistended, normoactive bowel sounds. EXTREMITIES: No clubbing, cyanosis, or edema. NEUROLOGICAL: Nonfocal. LABORATORY DATA: White blood cell count 4.9, hemoglobin 3.6, platelet count 153,000. MCV 68.8. Bas ic metabolic panel is normal. Albumin is low at 2.9, serum iron is 19, TIBC is 329 and saturation is 6%. ASSESSMENT: 1. A 63-year-old male with recurrent and profound anemia. I am concerned about chronic epistaxis. The patient has had multiple GI evaluations in the past with no evidence of GI lesions. 2. Type 2 diabetes mellitus. PLAN: 1. Place in med/surg observation and transfused 5 units of packed RBC check hemoglobin following tra nsfusion. DISCHARGE PLANNIN. The patient will be referred to ENT specialist as outpatient. Dictated By: NASRIN HOUSTON/MACY Conf#: [id number] DID#: [id number] CC: NASRIN NEGRON MD;*EndCC*
[2018-09-10] MEDS ORDERED: SOD CHLORIDE 0.9% 250 ML IV* ONE (15:12)
[2018-09-10] MEDS ORDERED: PHYTONADIONE 10 MG/ML INJ SC ONE (15:30)
[2018-09-10] MEDS: ACCU-CHEK XX SCH ×3 (17:25→21:49)
[2018-09-10] MEDS: metFORMIN 500 MG TAB PO SCH (17:31)
[2018-09-10] MEDS: ACETAMINOPHEN 325 MG TAB PO PRN (22:34)
[2018-09-11] VITALS (12 sets, daily range): BP systolic 106–163; BP diastolic 52–78; PULSE 78–143; RESP 17–20
[2018-09-11] MEDS ORDERED: ONDANSETRON 4 MG INJ ONE (07:07)
[2018-09-11] MEDS: ACCU-CHEK XX SCH (07:25)
[2018-09-11] MEDS ORDERED: PHYTONADIONE 10 MG/ML INJ SC ONE (07:30)
[2018-09-11] MEDS ORDERED: AMLODIPINE 5 MG TAB PO ONE (07:30)
[2018-09-11] MEDS ORDERED: ONDANSETRON 4 MG INJ IV PRN (07:30)
[2018-09-11] MEDS ORDERED: OXYMETAZOLINE 0.05% 15 ML NAS SPRAY NASAL ONE (07:30)
[2018-09-11] MEDS ORDERED: LABETALOL HCL 20MG INJ IV ONE (07:30)
[2018-09-11] MEDS ORDERED: TRANEXAMIC ACID 1GM/100ML(PMX) 100 ML IV ONE (08:00)
--- NOTE | 2018-09-11 08:03 | EN ---
Date/Time of Note Date/Time of Note DATE: 09/11/18 TIME: 07:59 Event Note Medicine Medicine Event Note VIOLIN REPAIRER note VIOLIN REPAIRER was called at approximately 7:20 AM VIOLIN REPAIRER was called as patient was noted to be severely elevated blood pressure as well as epistaxis Patient was seen and examined at the bedside. Patient was having active epistaxis from bilateral nares. Pressure was being placed at the bridge of the nose by the RN. Patient's blood pressure was noted to be elevated with a systolic of 220 and a heart rate of approximately 110. Patient denied any chest pain or shortness of breath. He did appear uncomfortable secondary to his nosebleed. Vitals: Heart rate 110 blood pressure 220/110, satting at 92% on room air respirations 20 General: Epistaxis from the bilateral nares CVS: Sinus tachycardia Lungs: Clear to auscultation bilaterally Neuro: Alert and oriented x3 Assessment and plan: #1 hypertensive urgency: Stat dose of labetalol 20 mg IV x1 #2 epistaxis: Pressure was applied to the bilateral nares which did result in cessation of bleeding after a period of approximately 10-15 minutes. Order for Afrin and gauze was given to the RN and directions for soaking the gauze and Afrin and then placing in bilateral naris. Stat CBC. Disposition: Continue telemetry monitoring, await CBC results. Monitor blood pressures and epistaxis. I have asked the nurse to contact primary physician for further orders. Greater than 30 minutes of critical care time was spent on the care and management of this patient. CODIE LUNSFORD Sep 11, 2018 08:03
[2018-09-11] MEDS ORDERED: FUROSEMIDE 20 MG INJ IV ONE (09:00)
--- NOTE | 2018-09-11 10:12 | PN ---
Date/Time of Note Date/Time of Note DATE: 09/11/18 TIME: 10:10 Subjective Patient had an episode of epistaxis in a.m. this was a large amount. Objective Vitals Vital Signs Date Temp Pulse Resp B/P (MAP) Pulse Ox O2 O2 Flow FiO2 Time Delivery Rate 09/11/18 103 17 163/76 92 Room Air 08:34 (105) 09/11/18 98.8 04:31 09/11/18 2.0 00:05 09/09/18 21 15:40 Intake and Output 09/10/18 09/10/18 09/11/18 1515:00 23:00 07:00 IntakeIntake Total 1150 ml 850 ml OutputOutput Total 900 ml 550 ml 1400 ml BalanceBalance -900 ml 600 ml -550 ml Neck supple Lungs mild rhonchi Cardiac regular rate and rhythm Abdomen soft nontender nondistended normoactive bowel sounds Extremities no clubbing cyanosis or edema Neurological nonfocal Results Result Diagram: 09/11/18 0730 09/09/18 1539 Medications Medications Current Medications Acetaminophen (Tylenol Tab) 650 mg Q4H PRN PO MILD PAIN(1-3)OR ELEVATED TEMP Last administered on 09/10/18at 22:34; Admin Dose 650 MG; Start 09/09/18 at 22:30 Zolpidem Tartrate (Ambien) 5 mg HS PRN PO INSOMNIA; Start 09/09/18 at 22:30 Albuterol/ Ipratropium (Duoneb) 3 ml Q4H RESP THERAPY PRN HHN SHORTNESS OF BREATH Last administered on 09/10/18at 18:12; Admin Dose 3 ML; Start 09/10/18 at 23:50 Metformin HCl (Glucophage) 500 mg WITH BREAKFAST DINNE PO Last administered on 09/10/18at 17:31; Admin Dose 500 MG; Start 09/10/18 at 17:55 Diagnostic Test (Pha) (Accu-Chek) 1 ea AC MEALS AND BEDTIME XX Last administered on 09/10/18at 21:49; Admin Dose 1 EA; Start 09/10/18 at 11:20 Ondansetron HCl (Zofran Inj) 4 mg Q4H PRN IV NAUSEA AND/OR VOMITING Last administered on 09/11/18at 07:13; Admin Dose 4 MG; Start 09/11/18 at 07:30 Hydralazine HCl (Apresoline) 25 mg Q6 PRN PO ELEVATED SYSTOLIC BP; Start 09/11/18 at 07:30 VTE Prophylaxis Risk score (from Ns)>0 risk: 2 SCD applied (from Ns): Yes Lines/Catheters IV Catheter Type: Saline Lock Frausto in Place: No Assessment/Plan Assessment/Plan 63-year-old male with acute on chronic epistaxis. Rule out posterior bleed Profound anemia, status post packed RBC transfusion with 7 units, stable ENT consultation was requested Patient may require cautery Monitor hemoglobin IV Lasix x1 NASRIN EARL MD Sep 11, 2018 10:12
[2018-09-11] MEDS: ACETAMINOPHEN 325 MG TAB PO PRN (10:17)
--- NOTE | 2018-09-11 10:33 | PDOCDIS ---
Discharge Instructions CONDITION [id number] Patient Condition: [id number] Good HOME CARE INSTRUCTIONS: [id number] Diet Instructions: Hydsn1d [id number] Activity Restrictions: [id number] No Restrictions FOLLOW UP/APPOINTMENTS Follow-up Plan pcp 1 week ENT 1 week NASRIN NEGRON MD Sep 11, 2018 10:33
[2018-09-11] MEDS: metFORMIN 500 MG TAB PO SCH (12:06)
[2018-09-11] MEDS: ALBUTEROL/IPRATROPIUM (NEB) 3 ML AMP HHN PRN ×2 (12:52→16:27)
[2018-09-11] MEDS ORDERED: METHADONE 10 MG TAB PO ONE (13:30)
--- NOTE | 2018-09-11 15:23 | HP ---
DATE OF ADMISSION: 09/09/2018 HISTORY OF PRESENT ILLNESS: Calvin Diaz is a 63-year-old gentleman with epistaxis which spontaneou sly stopped this morning. ENT was consulted to evaluate. On examination today, his septum is anteriorly deviated to the right and inferiorly deviated to the l eft. The blood was cleared out of the left nasal cavity and there was one spot which was suspicious and when manipulated began to bleed briskly. I was able to stop it using silver nitrate. It did leora e some time, but I was able to completely stop it. Once this was done, I was able to manipulate the area and not get it to bleed. The oral cavity and oropharynx are clear. Neck reveals no lymphadenop athy or thyromegaly. Trachea is midline and mandibular glands are without lesion. IMPRESSION: Epistaxis, deviated septum. PLAN: At this point, the area has been cauterized adequately. If there are any questions or concern s, please feel free to call at any time. Dictated By: ADEN CHANG/MACY Conf#: [id number] DID#: [id number]
== END 2018-09-11 18:08 | disposition home health service (06) ==
LOC: E/R 13:30 → INTOOBSV 18:03 → TEL 18:03
PROVIDERS: ADMIT Internal Medicine; ATTEND Internal Medicine
DX: R04.0 Epistaxis (principal); D64.9 Anemia, unspecified; E11.9 Type 2 diabetes mellitus without complications; I10 Essential (primary) hypertension
CPT/HCPCS: 36430; 71045; 80053; 81001; 82728; 82962; 83540; 83605; 83615; 83880; 84466; 84484; 85014; 85018; 85025; 85610; 86850; 86900; 86901; 86920; 87400; 93005; 94640; 94644; 94664; J1940; J2405; J3430; J7040; P9016; Z7500; Z7502; Z7610; 99217; G0378

== ENCOUNTER 2018-09-15 21:50 | Emergency (ER) | payer OTHER ==
[~2018-09-15] VITALS: Ht 182.9 cm; Wt 79.3 kg
[~2018-09-15 21:50] MED LIST changes: -ALBU2.5V3 NEB; -ALBU8.5H8 INH; -ALPR0.5T PO; -ALPR0.5T6 PO; -DOCU-144 PO; -FER325 PO; -FURO-110 PO; -METF-849 PO; +METF500T24 PO; -NEBU-113 MC; -PRED20TA PO
[2018-09-15 22:22] VITALS: Ht 182.9 cm; Wt 79.3 kg
[2018-09-16 00:11] VITALS: BP 167/78; PULSE 86; RESP 18
[2018-09-16] MEDS ORDERED: morphine 4 MG/ML VIAL IV STA (03:47)
[2018-09-16] MEDS ORDERED: CEFTRIAXONE 1 GM/50 ML (PMX) 50 ML IVPB ONE (04:30)
--- NOTE | 2018-09-16 05:05 | ERD ---
ER Documentation Chief Complaint Chief Complaint R hand swelling X 1 day HPI Patient is a 63-year-old male with a past medical history of asthma, diabetes, hypertension and microcytic anemia who presents to the ER for concerns of acute right hand swelling times 1 day. Patient states that throughout the day, he noticed that his hand started to get more swollen. Patient denies any falls or trauma. Patient denies any fevers or chills at home. Patient is right-hand dominant. Patient denies any insect bites or IV drug use. Patient states he works in [employer] however he has not worked recently due to recent hospitalization. Patient was recently admitted to this facility for blood transfusions. Patient states that at previous visit nursing staff did attempt an IV line in his right forearm however it blew. Patient states his blood transfusions through his left forearm. Patient denies any chest pain, shortness of breath, abdominal pain, nausea, vomiting or LOC. ROS All systems reviewed and are negative except as per history of present illness. Medications Home Meds Reported Medications Pantoprazole* (Protonix*) 40 Mg Tablet.dr, 40 MG PO DAILY, TAB 09/09/18 Metformin Hcl* (Metformin Hcl*) 500 Mg Tablet, 500 MG PO WITH BREAKFAST DINNE, #60 TAB 09/09/18 Discontinued Scripts Pantoprazole* (Protonix*) 40 Mg Tablet.dr, 40 MG PO DAILY for 30 Days, TAB 3 Refills Prov:NASRIN NEGRON MD 07/31/18 Nebulizer (Aeroneb Go Nebuliser) 1 Each Each, EACH MC, #1 Prov:JON QUEZADA PA-C 07/08/18 Albuterol Sulfate* (Albuterol Sulfate* Neb) 0.083%-3 Ml Neb, 2.5 MG NEB Q4 PRN for SHORTNESS OF BREATH, #30 EA Prov:JON QUEZADA PA-C 07/08/18 Metformin* (Glucophage*) 500 Mg Tab, 500 MG PO BID, #30 TAB Prov:JON QUEZADA PA-C 07/08/18 Albuterol Sulfate* (Proair HFA*) 8.5 Gm Hfa.aer.ad, 2 PUFF INH Q4H PRN for WHEEZING AND SOB, #1 INHALER Prov:JON QUEZADA PA-C 07/08/18 Prednisone* (Prednisone*) 20 Mg Tab, 40 MG PO DAILY for 4 Days, TAB Prov:LAXMI CASTELLON MD 05/23/18 Albuterol Sulfate* (Proair HFA*) 8.5 Gm Hfa.aer.ad, 2 PUFF INH Q4H PRN for WHEEZING AND SOB, #1 INHALER Prov:LAXMI CASTELLON MD 05/23/18 Docusate Sodium* (Colace*) 100 Mg Capsule, 100 MG PO TID PRN for CONSTIPATION, #30 CAP Prov:JON QUEZADA PA-C 02/19/18 Ferrous Sulfate* (Ferrous Sulfate*) 325 Mg Tabec, 325 MG PO DAILY, #30 TAB Prov:JON QUEZADA PA-C 02/19/18 Alprazolam* (Alprazolam*) 0.5 Mg Tablet, 0.5 MG PO Q8H PRN for ANXIETY, #10 TAB Prov:JON QUEZADA PA-C 02/19/18 Alprazolam* (Xanax*) 0.5 Mg Tab, 0.5 MG PO Q8H PRN for ANXIETY, #20 TAB Prov:HARMONY SOLORIO DO 02/01/18 Furosemide* (Lasix*) 20 Mg Tablet, 20 MG PO DAILY for 14 Days, TAB Prov:CARMEL APONTE 01/24/17 Allergies Allergies: Coded Allergies: No Known Allergy (Unverified , 09/09/18) PMhx/Soc History of Surgery: Yes (R Ankle surgery) Anesthesia Reaction: No Hx Neurological Disorder: No Hx Respiratory Disorders: Yes (Asthma) Hx Cardiac Disorders: No Hx Psychiatric Problems: Yes (anxiety) Hx Miscellaneous Medical Probl: Yes (anemia) Hx Alcohol Use: No Hx Substance Use: No Hx Tobacco Use: No FmHx Family History: diabetes Physical Exam Vitals Vital Signs Date Temp Pulse Resp B/P (MAP) Pulse Ox O2 O2 Flow FiO2 Time Delivery Rate 09/16/18 100.0 86 18 167/78 96 Room Air 00:11 (107) 09/15/18 100.2 88 18 163/72 96 22:22 (102) Physical Exam GENERAL: Well-developed, well-nourished male. Appears in no acute distress. HEAD: Normocephalic, atraumatic. EYES: Pupils are equally reactive bilaterally. EOMs grossly intact. No conjunctival erythema. NECK: Supple. No meningismus. Normal range of motion of the neck. LUNG: Clear to auscultation bilaterally. No wheezing, rales or coarse breath andrew nds. No abdominal retractions, no nasal flaring, no tripoding. HEART: Regular rate and rhythm. No murmurs, rubs or gallops. EXTREMITIES: Equal pulses bilaterally. No peripheral clubbing, cyanosis or edema. No unilateral leg swelling. NEUROLOGIC: Alert and oriented. Moving all four extremities without any difficulty. Normal speech. Steady gait. RUE: Significant swelling noted throughout the right hand on both the dorsal and volar surfaces and all digits. Patient unable to fully extend all digits secondary to swelling. Faint erythema noted to the dorsal surface. Sensation intact to light touch. 2+ pulses. Slight warmth noted. No streaking. Result Diagram: 09/16/18 0201 09/16/18 0201 Results 24 hrs Laboratory Tests Test 09/16/18 02:01 White Blood Count 5.4 10^3/ul Red Blood Count 3.35 10^6/ul Hemoglobin 7.9 g/dl Hematocrit 27.6 % Mean Corpuscular Volume 82.4 fl Mean Corpuscular Hemoglobin 23.6 pg Mean Corpuscular Hemoglobin Concent 28.6 g/dl Red Cell Distribution Width 25.6 % Platelet Count 166 10^3/UL Mean Platelet Volume 9.7 fl Immature Granulocytes % 0.600 % Neutrophils % 64.4 % Lymphocytes % 13.7 % Monocytes % 9.6 % Eosinophils % 11.5 % Basophils % 0.2 % Nucleated Red Blood Cells % 0.0 /100WBC Immature Granulocytes # 0.030 10^3/ul Neutrophils # 3.5 10^3/ul Lymphocytes # 0.7 10^3/ul Monocytes # 0.5 10^3/ul Eosinophils # 0.6 10^3/ul Basophils # 0.0 10^3/ul Nucleated Red Blood Cells # 0.0 10^3/ul Erythrocyte Sedimentation Rate 27 mm/Hr Sodium Level 136 mmol/L Potassium Level 4.4 mmol/L Chloride Level 101 mmol/L Carbon Dioxide Level 30 mmol/L Anion Gap 5 Blood Urea Nitrogen 9 mg/dl Creatinine 0.53 mg/dl Est Glomerular Filtrat Rate mL/min > 60 mL/min Glucose Level 246 mg/dl Calcium Level 7.9 mg/dl Total Bilirubin 0.9 mg/dl Direct Bilirubin 0.00 mg/dl Indirect Bilirubin 0.9 mg/dl Aspartate Amino Transf (AST/SGOT) 48 IU/L Alanine Aminotransferase (ALT/SGPT) 32 IU/L Alkaline Phosphatase 110 IU/L C-Reactive Protein 4.5 mg/dl Total Protein 6.8 g/dl Albumin 2.7 g/dl Globulin 4.10 g/dl Albumin/Globulin Ratio 0.65 Current Medications Medications Dose Sig/Halle Start Time Status Last (Trade) Ordered Route PRN Stop Time Admin Dose Reason Admin Morphine 4 mg ONCE STAT 09/16/18 DC Sulfate IV 03:47 (morphine) 09/16/18 03:48 Ceftriaxone 50 ml @ ONCE ONCE 09/16/18 DC Sodium 100 mls/hr IVPB 04:30 09/16/18 04:59 Procedures/MDM ED COURSE: The patient was stable throughout ED course. I kept the patient and/or family informed of laboratory and diagnostic imaging results throughout the ED course. DIAGNOSTIC IMAGING: Read by radiologist. DIAGNOSTIC IMAGING REPORT Patient: JUNIOR MCKENZIE : 1955 Age: 63 Sex: M MR #: [id number] DOS: 09/16/18 013 Ordering MD: GATO PACHECO PA-C Location: [facility] Room/Bed: PROCEDURE: XR Hand. CLINICAL INDICATION: Swelling. TECHNIQUE: Three views of the right hand were obtained. COMPARISON: No prior studies are available for comparison. FINDINGS: There is mild soft tissue swelling overlying the fifth metacarpal. There is no underlying radiopaque foreign body or erosion. No fracture is identified. Joint relationships are maintained. There degenerative changes of the distal interphalangeal joint of the first digit and distal metaphysis of the third metacarpal. Bone mineralization is within normal limits. Vascular calcifications are present. IMPRESSION: Soft tissue swelling overlying the fifth metacarpal without underlying lesion. Mild degenerative changes. Vascular calcifications. RPTAT: HMVK .Bhavin Braga MD, Date Time Electronically viewed and signed by .Bhavin Braga MD, MD on 09/16/2018 02:45 .K/ CC: TARALIZETHPARI FRANCO [id number] MEDICAL DECISION MAKING: This is a 63-year-old male with a past medical history of asthma, diabetes, hypertension microcytic anemia presents the ER for concerns of acute right hand swelling times 1 day. Patient denies any falls or trauma. Vital signs were reviewed. Patient was noted to have a temperature of 100.2 Fahrenheit. Pulse was 88. Patient did not meet SIRS criteria. Blood work was obtained. CBC showed WBC count of 7.9, hematocrit of 27.6. Findings consistent with history of microcytic anemia. No indication for emergent blood transfusion at this time. CMP showed no severe electrolyte abnormalities except for glucose of 246. Bicarb WNL, doubt DKA. No evidence of acidosis, alkalosis or renal injury. Patient CRP was noted to be elevated at 4.5, ESR of 27. X-ray imaging of the right hand showed soft tissue swelling overlying the fifth metacarpal without underlying lesion. Mild degenerative changes. Vascular calcifications. Patient's presentation is most consistent with left hand cellulitis and history of diabetes. Low suspicion for fracture or dislocation. Case was discussed with supervising physician Dr. Solorio who agreed that patient should be admitted for further management and workup of his symptoms. Patient will require IV antibiotics. IV Rocephin was ordered however patient did not receive this medication as he refused the medication and IV line. Upon discussing results with patient and decision for admission, patient refused IV line and IV medications. Patient stated that he did not wish to be admitted again as he just left the hospital a few days ago. I explained to the patient at length the risks of leaving against medical advice including infection, sepsis, permanent disability, amputation and/or . Nursing staff present. Patient continued to refuse admission and wished to leave AGAINST MEDICAL ADVICE. Patient signed AMA form. The patient displayed full decision-making c apacity. The patient was over the age of 18. The patient exhibited no evidence of altered level of consciousness and or alcohol/drug ingestion that would impair his judgment. The patient had opportunity ask questions about his condition. The patient was informed that he may return to the emergency department for care at any time. Patient was advised to follow-up with his primary care physician FRITZ. Departure Diagnosis: Primary Impression: Cellulitis of hand Additional Impressions: Hand swelling Laterality: unspecified laterality Qualified Codes: M79.89 - Other specified soft tissue disorders History of diabetes mellitus Condition: Serious GATO PACHECO PA-C Sep 16, 2018 04:57
[2018-09-16] MEDS ORDERED: TRAM50TA2 PO (22:25)
[2018-09-16] MEDS ORDERED: CEPH-443 PO (22:25)
[2018-09-16] MEDS ORDERED: SULF1TAB31 PO (22:25)
[2018-09-16] MEDS ORDERED: IBUP-1542 PO (22:26)
[2018-09-16] MEDS ORDERED: FER325 PO (22:27)
== END 2018-09-16 04:03 | disposition left against medical advice (07) ==
LOC: FTE 21:50
DX: L03.113 Cellulitis of right upper limb (principal); I10 Essential (primary) hypertension; J45.909 Unspecified asthma, uncomplicated; E11.9 Type 2 diabetes mellitus without complications; Z79.84 Long term (current) use of oral hypoglycemic drugs
CPT/HCPCS: 80053; 85025; 85651; 86140

== ENCOUNTER 2018-09-16 20:44 | Emergency (ER) | payer OTHER ==
[~2018-09-16] VITALS: Ht 182.9 cm; Wt 79.0 kg
[2018-09-16 21:04] VITALS: BP 154/68; PULSE 86; RESP 19; Ht 182.9 cm; Wt 79.0 kg
--- NOTE | 2018-09-16 22:21 | ERD ---
ER Documentation Chief Complaint Chief Complaint RIGHT HAND SWELLING, RECHECK HPI This is a 63-year-old male who presents here in the emergency department with complaints of right hand swelling. Stated that he was here yesterday but refused to stay here at the hospital. Stated that the swelling has decreased. He also stated that the redness has decreased. Also stated that the only reason why he came was to get a pain medication for this. Denies hand injury. Denies headache, head injury, loss of consciousness, dizziness, neck pain, neck stiffness, throat pain, difficulty swallowing, difficulty breathing lying flat, shoulder pain, chest pain, back pain, abdominal pain, nausea, vomiting, c onstipation, diarrhea, urinary symptoms, loss of bowel and bladder control, trauma, injury, falls, difficulty walking due to pain, numbness or tingling sensation, calf pain, recent travel, recent major surgery in the last 3 weeks, calf pain, recent long travel, recent exposure to any illness, recent antibiotic use in the last 3 months, fever, chills, seizures. Past medical history: Diabetes. Surgical history: Social: Denies smoking, use of alcoholic beverages, use of illegal drugs. ROS All systems reviewed and are negative except as per history of present illness. Medications Home Meds Active Scripts Cephalexin* (Keflex*) 500 Mg Capsule, 500 MG PO TID for hand infection for 9 Days, #27 CAP Prov:HIREN RICHTER DO 09/22/18 Sulfamethoxazole/Trimethoprim* (Bactrim Ds* Tablet) 1 Each Tablet, 1 TAB PO BID for hand infection for 7 Days, #14 TAB Prov:HIREN RICHTER DO 09/22/18 Ferrous Sulfate* (Ferrous Sulfate*) 325 Mg Tabec, 325 MG PO TID, #90 TAB Prov:LUCERO CARLSON F 09/16/18 Ibuprofen* (Motrin*) 600 Mg Tab, 600 MG PO Q6H PRN for PAIN AND OR ELEVATED TEMP, #12 TAB Prov:PASILALUCERO SMITH F 09/16/18 Tramadol HCl (Tramadol HCl) 50 Mg Tablet, 50 MG PO Q4 PRN for PAIN, #9 TAB Prov:LUCERO CARLSON F 09/16/18 Sulfamethoxazole/Trimethoprim* (Bactrim Ds* Tablet) 1 Each Tablet, 1 TAB PO BID, #14 TAB Prov:LUCERO CARLSON 09/16/18 Cephalexin* (Keflex*) 500 Mg Capsule, 500 MG PO QID for 5 Days, CAP Prov:LUCERO CARLSON 09/16/18 Reported Medications Pantoprazole* (Protonix*) 40 Mg Tablet.dr, 40 MG PO DAILY, TAB 09/09/18 Metformin Hcl* (Metformin Hcl*) 500 Mg Tablet, 500 MG PO WITH BREAKFAST DINNE, #60 TAB 09/09/18 Allergies Allergies: Coded Allergies: No Known Allergy (Unverified , 09/09/18) PMhx/Soc History of Surgery: Yes (R Ankle surgery) Anesthesia Reaction: No Hx Neurological Disorder: No Hx Respiratory Disorders: Yes (Asthma) Hx Cardiac Disorders: No Hx Psychiatric Problems: Yes (anxiety) Hx Miscellaneous Medical Probl: Yes (anemia) Hx Alcohol Use: No Hx Substance Use: No Hx Tobacco Use: No Physical Exam Vitals Physical Exam Const: No acute distress Head: Atraumatic Eyes: Normal Conjunctiva ENT: Normal External Ears, Nose and Mouth. Neck: Full range of motion. No meningismus. Resp: Clear to auscultation bilaterally Cardio: Regular rate and rhythm, no murmurs Abd: Soft, non tender, non distended. Normal bowel sounds Skin: No petechiae or rashes Back: No midline or flank tenderness Ext: No cyanosis. Right hand: Has significant swelling as compared to left hand. Swelling starts from fingers to extend to right wrist. Capillary refills to right upper extremity is less than 2 seconds. Right hand has limited range of motion but patient stated that this has improved since the last 24 hours. Refills are less than 2 seconds. Sensation is intact. Right elbow is unremarkable. Right radial pulses within normal limits. No signs of compartment syndrome. No signs of DVT. Left upper extremity is unremarkable. Neur: Awake and alert. No neurological deficits. Psych: Normal Mood and Affect Results 24 hrs Current Medications Medications Dose Sig/Halle Start Time Status Last (Trade) Ordered Route PRN Stop Time Admin Dose Reason Admin 1 tab ONCE ONCE 09/16/18 DC 09/16/18 Acetaminophen PO 22:30 22:35 / 09/16/18 22:31 Hydrocodone Bitart ([place] ([id number])) Procedures/MDM Diagnostic tests: Clinical exam. This case was discussed with my supervising physician, Dr. Oscar Moser who also examined the patient. Patient stated that the swelling has decreased. Patient stated that he has no fevers at home. Patient stated that he is comfortable going home. Patient stated that he came here for pain medicine. We both explained to the patient the necessity of taking the antibiotics at home. Treatment: [place] p.o. Re-evaluation: Denies pain. Able to move right fingers/thumb. Right radial pulses within normal limits. Capillary refills to right upper extremity are less than 2 seconds. Right wrist is good and full range of motion. No signs of DVT. No signs of tendon injury. Color appears normal for ethnicity. No signs of severe anemia. Differential diagnosis I have low suspicion for tendon injury, DVT, tenosynovitis, sepsis, compartment syndrome. Patient stated that he is comfortable going home. Final diagnosis: Cellulitis. Chronic anemia. Prescription: Keflex. Bactrim. Tramadol. Comeback in 24-48 hours for a recheck. Come back here in the emergency department for any new symptoms or any worsening symptoms. All questions and concerns were answered. Patient and family members verbalized understanding and agreed with plan of care. Hemodynamically stable on discharge. Departure Diagnosis: Primary Impression: Cellulitis of hand Condition: Stable Additional Instructions: Comeback in 24-48 hours for a recheck. Come back here in the emergency department for any new symptoms or any worsening symptoms. LUCERO CARLSON Sep 16, 2018 22:21
[2018-09-16] MEDS ORDERED: CEPH-443 PO (22:25)
[2018-09-16] MEDS ORDERED: SULF1TAB31 PO (22:25)
[2018-09-16] MEDS ORDERED: TRAM50TA2 PO (22:25)
[2018-09-16] MEDS ORDERED: IBUP-1542 PO (22:26)
[2018-09-16] MEDS ORDERED: FER325 PO (22:27)
[2018-09-16] MEDS ORDERED: HYDROCODONE/APAP (10/325) TAB PO ONE (22:30)
== END 2018-09-16 22:38 | disposition home or self-care (01) ==
LOC: FTE 20:44
DX: L03.113 Cellulitis of right upper limb (principal); J45.909 Unspecified asthma, uncomplicated
CPT/HCPCS: Z7502; Z7610; 99283

== ENCOUNTER 2018-09-22 14:04 | Emergency (ER) | payer OTHER ==
[~2018-09-22] VITALS: Ht 182.9 cm; Wt 81.0 kg
[~2018-09-22 14:04] MED LIST changes: +CEPH-443 PO; +FER325 PO; +IBUP-1542 PO; +SULF1TAB31 PO; +TRAM50TA2 PO
[2018-09-22 14:19] VITALS: Ht 182.9 cm; Wt 81.0 kg
[2018-09-22] MEDS ORDERED: LORAZEPAM 0.5 MG TAB PO ONE (18:30)
[2018-09-22] MEDS ORDERED: CEPH-443 PO (19:37)
[2018-09-22] MEDS ORDERED: SULF1TAB31 PO (19:37)
--- NOTE | 2018-09-22 19:39 | ERD ---
ER Documentation Chief Complaint Chief Complaint pt is bib self with c/o right hand swollen, R pinky discolored, ROS All systems reviewed and are negative except as per history of present illness. Medications Home Meds Active Scripts Cephalexin* (Keflex*) 500 Mg Capsule, 500 MG PO TID for hand infection for 9 Days, #27 CAP Prov:HIREN RICHTER DO 09/22/18 Sulfamethoxazole/Trimethoprim* (Bactrim Ds* Tablet) 1 Each Tablet, 1 TAB PO BID for hand infection for 7 Days, #14 TAB Prov:HIREN RICHTER DO 09/22/18 Ferrous Sulfate* (Ferrous Sulfate*) 325 Mg Tabec, 325 MG PO TID, #90 TAB Prov:PASILABANLUCERO 09/16/18 Ibuprofen* (Motrin*) 600 Mg Tab, 600 MG PO Q6H PRN for PAIN AND OR ELEVATED TEMP, #12 TAB Prov:PASILALUCERO SMITH F 09/16/18 Tramadol HCl (Tramadol HCl) 50 Mg Tablet, 50 MG PO Q4 PRN for PAIN, #9 TAB Prov:PASILABANLUCERO 09/16/18 Sulfamethoxazole/Trimethoprim* (Bactrim Ds* Tablet) 1 Each Tablet, 1 TAB PO BID, #14 TAB Prov:JACQUELINILALUCERO SMITH 09/16/18 Cephalexin* (Keflex*) 500 Mg Capsule, 500 MG PO QID for 5 Days, CAP Prov:PASILABAN,KLAR F 09/16/18 Reported Medications Pantoprazole* (Protonix*) 40 Mg Tablet.dr, 40 MG PO DAILY, TAB 09/09/18 Metformin Hcl* (Metformin Hcl*) 500 Mg Tablet, 500 MG PO WITH BREAKFAST DINNE, #60 TAB 09/09/18 Allergies Allergies: Coded Allergies: No Known Allergy (Unverified , 09/09/18) PMhx/Soc History of Surgery: Yes (R Ankle surgery) Anesthesia Reaction: No Hx Neurological Disorder: No Hx Respiratory Disorders: Yes (Asthma) Hx Cardiac Disorders: No Hx Psychiatric Problems: Yes (anxiety) Hx Miscellaneous Medical Probl: Yes (anemia, dm,HTN, Hepatitis C) Hx Alcohol Use: No Hx Substance Use: No Hx Tobacco Use: No Smoking Status: Former smoker Physical Exam Vitals Vital Signs Date Temp Pulse Resp B/P (MAP) Pulse Ox O2 O2 Flow FiO2 Time Delivery Rate 09/22/18 98.3 82 16 144/74 98 14:19 (97) Physical Exam Const: No acute distress Head: Atraumatic Eyes: Normal Conjunctiva ENT: Normal External Ears, Nose and Mouth. Neck: Full range of motion. No meningismus. Resp: Clear to auscultation bilaterally Cardio: Regular rate and rhythm, no murmurs Abd: Soft, non tender, non distended. Normal bowel sounds Skin: No petechiae or rashes Back: No midline or flank tenderness Ext: No cyanosis, or edema Neur: Awake and alert Psych: Normal Mood and Affect Results 24 hrs Current Medications Medications Dose Sig/Halle Start Time Status Last (Trade) Ordered Route PRN Stop Time Admin Dose Reason Admin Lorazepam 0.5 mg ONCE ONCE 09/22/18 DC 09/22/18 (Ativan) PO 18:30 18:30 09/22/18 18:31 Departure Diagnosis: Primary Impression: Cellulitis of hand Condition: Fair Patient Instructions: Cellulitis Referrals: [facility] YOU HAVE RECEIVED A MEDICAL SCREENING EXAM AND THE RESULTS INDICATE THAT YOU DO NOT HAVE A CONDITION THAT REQUIRES URGENT TREATMENT IN THE EMERGENCY DEPARTMENT. FURTHER EVALUATION AND TREATMENT OF YOUR CONDITION CAN WAIT UNTIL YOU ARE SEEN IN YOUR DOCTORS OFFICE WITHIN THE NEXT 1-2 DAYS. IT IS YOUR RESPONSIBILITY TO MAKE AN APPOINTMENT FOR FOLOW-UP CARE. IF YOU HAVE A PRIMARY DOCTOR --you should call your primary doctor and schedule an appointment IF YOU DO NOT HAVE A PRIMARY DOCTOR YOU CAN CALL OUR PHYSICIAN REFERRAL HOTLINE AT IF YOU CAN NOT AFFORD TO SEE A PHYSICIAN YOU CAN CHOSE FROM THE FOLLOWING [facility] [address] [facility] [address] [facility] [address] [facility] [address] [facility] [address] [facility]. [facility]. [address] Additional Instructions: Trini hair doctor MAANA y carla devin EDISON PARA DENTRO DE 1-2 MARCELO.Dgale a la secretaria que nosotros le instruimos hacer esta edison.Avise o llame si whitney condicin se empeora antes de la edison. Regresa aqui si peor o no mejor. HIREN RICHTER DO Sep 22, 2018 19:39
[2018-09-22 19:46] VITALS: BP 140/74; PULSE 68; RESP 16
== END 2018-09-22 19:47 | disposition home or self-care (01) ==
LOC: FTE 14:04
DX: L03.113 Cellulitis of right upper limb (principal); I10 Essential (primary) hypertension; E11.9 Type 2 diabetes mellitus without complications; J45.909 Unspecified asthma, uncomplicated; Z79.84 Long term (current) use of oral hypoglycemic drugs
CPT/HCPCS: 99283

== ENCOUNTER 2018-10-22 14:16 | Observation (INO) | payer OTHER ==
[~2018-10-22] VITALS: Ht 182.9 cm; Wt 75.0 kg
[2018-10-22] MEDS ORDERED: SOD CHLORIDE 0.9% 0 ML IV ONE (16:11)
[2018-10-22] MEDS ORDERED: BENA20TA4 PO (16:30)
[2018-10-22] MEDS ORDERED: ONDANSETRON 4 MG INJ IV PRN (16:30)
[2018-10-22] MEDS ORDERED: ACETAMINOPHEN 325 MG TAB PO PRN (16:30)
[2018-10-22] MEDS ORDERED: MONT10TA24 PO (16:30)
[2018-10-22] MEDS ORDERED: ALBU2.5V3 NEB (16:31)
[2018-10-22] MEDS ORDERED: LORAZEPAM 1 MG TAB PO ONE (17:00)
--- NOTE | 2018-10-22 17:53 | ERD ---
ER Documentation Chief Complaint Chief Complaint pale & fatigue, sent by PMD, possible transfusion H/H 5.0/18.8 fr monday HPI Patient is a 63-year-old male with anemia, diabetes, and hypertension who presents with anemia. His hemoglobin was 5 on outpatient lab check. He had a transfusion about 1 month ago. He denies bleeding. He has had a recent colonoscopy he says. He has shortness of breath and bilateral feet swelling. Upon review of old medical records the patient has multiple visits for various complaints. He said that his primary doctor is Dr. Morrell. ROS All systems reviewed and are negative except as per history of present illness. Medications Home Meds Active Scripts Ferrous Sulfate* (Ferrous Sulfate*) 325 Mg Tabec, 325 MG PO TID, #90 TAB Prov:LUCERO CARLSON 09/16/18 Reported Medications Albuterol Sulfate* (Albuterol Sulfate* Neb) 0.083%-3 Ml Neb, 1.25 MG NEB Q6H PRN for WHEEZING AND SOB, #30 VIAL 10/22/18 Benazepril Hcl* (Benazepril Hcl*) 20 Mg Tablet, 20 MG PO DAILY, #30 TAB 10/22/18 Montelukast Sodium* (Montelukast Sodium*) 10 Mg Tablet, 10 MG PO QHS, #30 TAB 10/22/18 Pantoprazole* (Protonix*) 40 Mg Tablet.dr, 40 MG PO DAILY, TAB 09/09/18 Metformin Hcl* (Metformin Hcl*) 500 Mg Tablet, 500 MG PO WITH BREAKFAST DINNE, #60 TAB 09/09/18 Discontinued Scripts Cephalexin* (Keflex*) 500 Mg Capsule, 500 MG PO TID for hand infection for 9 Days, #27 CAP Prov:HIREN RICHTER DO 09/22/18 Sulfamethoxazole/Trimethoprim* (Bactrim Ds* Tablet) 1 Each Tablet, 1 TAB PO BID for hand infection for 7 Days, #14 TAB Prov:HIREN RICHTER DO 09/22/18 Ibuprofen* (Motrin*) 600 Mg Tab, 600 MG PO Q6H PRN for PAIN AND OR ELEVATED TEMP, #12 TAB Prov:LUCERO CARLSON 09/16/18 Tramadol HCl (Tramadol HCl) 50 Mg Tablet, 50 MG PO Q4 PRN for PAIN, #9 TAB Prov:LUCERO CARLSON 09/16/18 Sulfamethoxazole/Trimethoprim* (Bactrim Ds* Tablet) 1 Each Tablet, 1 TAB PO BID, #14 TAB Prov:LUCERO CARLSON 09/16/18 Cephalexin* (Keflex*) 500 Mg Capsule, 500 MG PO QID for 5 Days, CAP Prov:JACQUELINILALUCERO SMITH 09/16/18 Allergies Allergies: Coded Allergies: No Known Allergy (Unverified , 10/22/18) PMhx/Soc History of Surgery: Yes (R Ankle surgery) Anesthesia Reaction: No Hx Neurological Disorder: No Hx Respiratory Disorders: Yes (Asthma) Hx Cardiac Disorders: No Hx Psychiatric Problems: Yes (anxiety) Hx Miscellaneous Medical Probl: Yes (anemia, dm,HTN, Hepatitis C) Hx Alcohol Use: No Hx Substance Use: Yes (former iv drug user) Hx Tobacco Use: No Smoking Status: Unknown if ever smoked FmHx Family History: diabetes Physical Exam Vitals Vital Signs Date Temp Pulse Resp B/P (MAP) Pulse Ox O2 O2 Flow FiO2 Time Delivery Rate 10/22/18 98.6 88 18 148/67 94 14:20 (94) Physical Exam Const: No acute distress Head: Atraumatic Eyes: Normal Conjunctiva ENT: Normal External Ears, Nose and Mouth. Neck: Full range of motion. No meningismus. Resp: Clear to auscultation bilaterally Cardio: Regular rate and rhythm, no murmurs Abd: Soft, non tender, non distended. Normal bowel sounds Skin: Pale skin Back: No midline or flank tenderness Ext: No cyanosis, or edema Neur: Awake and alert Psych: Normal Mood and Affect Result Diagram: 10/22/18 1550 10/22/18 1550 Results 24 hrs Laboratory Tests Test 10/22/18 15:50 White Blood Count 3.8 10^3/ul Red Blood Count 2.79 10^6/ul Hemoglobin 5.0 g/dl Hematocrit 18.9 % Mean Corpuscular Volume 67.7 fl Mean Corpuscular Hemoglobin 17.9 pg Mean Corpuscular Hemoglobin Concent 26.5 g/dl Red Cell Distribution Width 21.8 % Platelet Count 181 10^3/UL Mean Platelet Volume fl Immature Granulocytes % 0.300 % Neutrophils % % Lymphocytes % % Monocytes % % Eosinophils % % Basophils % % Nucleated Red Blood Cells % 0.5 /100WBC Immature Granulocytes # 0.010 10^3/ul Neutrophils # 10^3/ul Lymphocytes # 10^3/ul Monocytes # 10^3/ul Eosinophils # 10^3/ul Basophils # 10^3/ul Nucleated Red Blood Cells # 10^3/ul Pathologist Review (Hematology) YES Prothrombin Time 16.2 Sec Prothrombin Time Ratio 1.3 INR International Normalized Ratio 1.29 Activated Partial Thromboplast Time 28.8 Sec Sodium Level 138 mmol/L Potassium Level 4.2 mmol/L Chloride Level 103 mmol/L Carbon Dioxide Level 28 mmol/L Anion Gap 7 Blood Urea Nitrogen 13 mg/dl Creatinine 0.69 mg/dl Est Glomerular Filtrat Rate mL/min > 60 mL/min Glucose Level 101 mg/dl Calcium Level 8.7 mg/dl Total Bilirubin 0.5 mg/dl Direct Bilirubin 0.00 mg/dl Indirect Bilirubin 0.5 mg/dl Aspartate Amino Transf (AST/SGOT) 48 IU/L Alanine Aminotransferase (ALT/SGPT) 20 IU/L Alkaline Phosphatase 97 IU/L Troponin I < 0.012 ng/ml Total Protein 7.7 g/dl Albumin 3.4 g/dl Globulin 4.30 g/dl Albumin/Globulin Ratio 0.79 Current Medications Medications Dose Sig/Halle Start Time Status Last (Trade) Ordered Route PRN Stop Time Admin Dose Reason Admin Sodium 0 ml @ 0 Q0M ONCE 10/22/18 DC Chloride mls/hr IV 16:11 10/22/18 16:12 Ondansetron 4 mg BRIDGE ORDER 10/22/18 HCl (Zofran PRN IV 16:30 Inj) NAUSEA/VOMITI 10/23/18 16:29 NG 650 mg ER BRIDGE 10/22/18 Acetaminophen PRN PO 16:30 (Tylenol .MILD PAIN 10/23/18 16:29 Tab) 1-3 OR TEMP Lorazepam 1 mg ONCE ONCE 10/22/18 DC 10/22/18 (Ativan) PO 17:00 16:40 10/22/18 17:01 Procedures/MDM EKG read by me: Rate/Rhythm: Regular rate and rhythm at a normal rate Intervals: Normal Impression: No evidence of ischemia or arrhythmia Patient is a 63-year-old male with anemia presents with anemia. His hemoglobin was 5 and he will be given a transfusion of 2 units of packed red blood cells. He will be admitted to the care of Dr. Mccormick to a medical surgical bed. The patient is unstable for transfer at this time as he has the need for blood transfusion. The patient denies any GI bleeding at this time. Critical Care: Time: 35 minutes excluding all billable p rocedures. Treatments/Evaluations: Close monitoring and treatment of unstable vital signs, cardiorespiratory, and neurologic status, while maintaining tight balance of fluid, respiratory, and cardiac interventions. Departure Diagnosis: Primary Impression: Anemia Anemia type: unspecified type Qualified Codes: D64.9 - Anemia, unspecified Condition: Serious EMILIA GARCIA MD Oct 22, 2018 17:53
[2018-10-22] MEDS ORDERED: SOD CHLORIDE 0.9% 250 ML IV* ONE (18:02)
[2018-10-22] MEDS ORDERED: DEXTROSE 50% 50 ML SYRINGE IV PRN ×2 (18:30)
[2018-10-22] MEDS ORDERED: GLUCOSE GEL 15 GRAM TUBE PO PRN ×2 (18:30)
[2018-10-22] MEDS ORDERED: GLUCAGON 1 MG INJ IM PRN (18:30)
[2018-10-22] MEDS ORDERED: GLUCOSE GEL 15 GRAM TUBE BUCCAL PRN (18:30)
[2018-10-22] MEDS ORDERED: BENAZEPRIL 20 MG TAB PO SCH (18:30)
[2018-10-22] MEDS ORDERED: ALBUTEROL 0.083% (NEB) 2.5 MG/3 ML AMP NEB PRN (18:30)
[2018-10-22 19:06] VITALS: BP 161/81; PULSE 92; RESP 19
[2018-10-22 19:50] VITALS: Ht 182.9 cm; Wt 75.0 kg
[2018-10-22] MEDS ORDERED: MONTELUKAST 10 MG TAB PO SCH (21:00)
[2018-10-22] MEDS: FERROUS SULFATE (EC) 325 MG TAB PO SCH (21:15)
[2018-10-22] MEDS: PANTOPRAZOLE (EC) 40 MG TAB PO SCH (21:15)
[2018-10-23 01:37] VITALS: BP 163/76; PULSE 88; RESP 18
[2018-10-23 07:42] VITALS: BP 152/76; PULSE 78; RESP 18
[2018-10-23] MEDS ORDERED: metFORMIN 500 MG TAB PO SCH (08:00)
[2018-10-23] MEDS: FERROUS SULFATE (EC) 325 MG TAB PO SCH (08:50)
[2018-10-23] MEDS: PANTOPRAZOLE (EC) 40 MG TAB PO SCH (08:50)
[2018-10-23] MEDS ORDERED: BENAZEPRIL 10 MG TAB PO SCH (09:00)
--- NOTE | 2018-10-23 09:14 | PDOCDIS ---
Discharge Instructions CONDITION [id number] Patient Condition: [id number] Good HOME CARE INSTRUCTIONS: [id number] Your diet recommendation is: Exudd1y diabetic ACTIVITY: [id number] Activity Restrictions: [id number] No Restrictions FOLLOW UP/APPOINTMENTS Follow-up Plan pcp [address] Ellison ENT 1 week NASRIN NEGRON MD Oct 23, 2018 09:14
--- NOTE | 2018-10-23 09:42 | HP ---
DATE OF ADMISSION: 10/22/2018 CHIEF COMPLAINT: Shortness of breath and dyspnea on exertion. HISTORY OF PRESENT ILLNESS: A 63-year-old male with a history of chronic epistaxis [facility] with complaint of shortness of breath and fatigue. The patient was found to have a hemoglo bin of 5. He has had extensive GI workup in the past with no evidence of GI bleed. During last admi ssion, the patient had epistaxis and seen in consultation by the ear, nose, throat specialist. He un derwent cauterization on the left side. However, he reports persistent epistaxis. The patient repor ts that he is swallowing blood at times. He denies hematemesis. No bright red blood per rectum. No melena. PAST MEDICAL HISTORY: 1. Chronic epistaxis. 2. Hypertension. 3. Type 2 diabetes mellitus. 4. Narcotic dependence, on methadone. MEDICATIONS PRIOR TO ADMISSION: 1. Albuterol inhaler. 2. Benadryl. 3. Montelukast sodium. 4. Protonix 5. Metformin. SOCIAL HISTORY: The patient lives at home. He denies tobacco or alcohol use. PHYSICAL EXAMINATION: GENERAL: Well-developed, well-nourished male who is in no apparent distress. VITAL SIGNS: Stable. He is afebrile. HEENT: Extraocular muscles are intact. Pupils are equal and reactive to light bilaterally. Sclerae are anicteric. Oropharynx is clear and moist. NECK: Supple, no JVD, no carotid bruits. LUNGS: Clear to auscultation bilaterally. CARDIAC: Regular rate and rhythm. No murmurs, rubs or gallops. ABDOMEN: Soft, nontender, nondistended, normoactive bowel sounds. EXTREMITIES: No clubbing, cyanosis, or edema. NEUROLOGICAL: Grossly nonfocal. LABORATORY DATA: WBC 3.8, hemoglobin is 5, MCV 67.7, platelet count 181,000. Basic metabolic panel is within normal limits. ASSESSMENT: 1. A 63-year-old male with iron deficiency anemia due to chronic epistaxis. 2. Hypertension. 3. Type 2 diabetes mellitus. 4. History of narcotic dependent, on methadone. PLAN: 1. Place in med/surg observation. 2. Transfuse 4 units of packed RBC. 3. Dr. Parekh will be notified and the patient will follow up with him as outpatient. Dictated By: NASRIN HOUSTON/MACY Conf#: [id number] DID#: [id number] CC: NASRIN NEGRON MD; PRASANNA PAREKH MD;*EndCC*
--- NOTE | 2018-10-23 10:07 | DS ---
DATE OF ADMISSION: 10/22/2018 DATE OF DISCHARGE: 10/23/2018 DISCHARGE DIAGNOSES: 1. Iron deficiency anemia, status post transfusion with 4 units of packed RBC. 2. Chronic epistaxis. 3. Hypertension. 4. Type 2 diabetes mellitus. 5. History of narcotic dependence, on methadone. HOSPITAL COURSE: A 63-year-old male with previous history of epistaxis status post left-sided nasal cautery presented with complaints of shortness of breath and fatigue. He was found to have hemoglobi n of 5. The patient received 4 units of packed RBC. He reported persistent epistaxis. The patient continues to swallow the blood. He denies hematemesis, bright red blood per rectum, or melena. The patient received 4 units of packed RBC. He will have repeat hemoglobin prior to discharge. The leonard ent is being referred to Dr. Ellison further evaluation. He was notified of this admission. Dictated By: NASRIN HOUSTON/MACY Conf#: [id number] DID#: [id number]
[2018-10-23 11:30] VITALS: BP 148/7; PULSE 80; RESP 20
== END 2018-10-23 11:35 | disposition home or self-care (01) ==
LOC: E/R 14:16 → 2NE 16:26 → INTOOBSV 16:26
PROVIDERS: ADMIT Internal Medicine; ATTEND Internal Medicine
DX: D50.9 Iron deficiency anemia, unspecified (principal); I10 Essential (primary) hypertension; E11.9 Type 2 diabetes mellitus without complications; J45.909 Unspecified asthma, uncomplicated; R04.0 Epistaxis; Z79.84 Long term (current) use of oral hypoglycemic drugs
CPT/HCPCS: 36415; 36430; 80053; 84484; 85025; 85610; 85730; 86850; 86900; 86901; 86920; 93005; J7040; P9016; Z7500; Z7502; Z7610; 99217; G0378

== ENCOUNTER 2018-11-05 09:13 | Emergency (ER) | payer OTHER ==
[~2018-11-05] VITALS: Ht 182.9 cm; Wt 77.0 kg
[~2018-11-05 09:13] MED LIST changes: +ALBU2.5V3 NEB; +BENA20TA4 PO; -CEPH-443 PO; -IBUP-1542 PO; +MONT10TA24 PO; -PANT40TA3 PO; -SULF1TAB31 PO; -TRAM50TA2 PO
[2018-11-05 09:22] VITALS: PULSE 91; Ht 182.9 cm; Wt 77.0 kg
[2018-11-05] MEDS ORDERED: ACETAMINOPHEN 325 MG TAB PO ONE (11:30)
[2018-11-05] MEDS ORDERED: NAPR-985 PO (13:25)
[2018-11-05] MEDS ORDERED: ACET325T33 PO (13:26)
[2018-11-05 13:55] VITALS: BP 150/79; RESP 18
--- NOTE | 2018-11-05 14:18 | ERD ---
ER Documentation Chief Complaint Chief Complaint hand swelling x 1 month not getting better HPI This is a 63-year-old male patient who presents the emergency room with complaint of right hand pain. Patient had been seen at this ER on September 15 and treated for a cellulitis. Patient states hand has greatly improved since that time however he still feels like there is some pain and swelling in his fingers. Patient denies fevers, no nausea vomiting, no other medical complaints at this time. Patient states he works with his hands and it is getting increasingly difficult for him to get through the day without having increasing pain. ROS All systems reviewed and are negative except as per history of present illness. Medications Home Meds Active Scripts Acetaminophen* (Tylenol*) 325 Mg Tablet, 2 TAB PO Q6 PRN for PAIN AND OR ELEVATED TEMP, #20 TAB Prov:FLORENCIA PURVIS NP 11/05/18 Naproxen* (Naprosyn*) 500 Mg Tablet, 500 MG PO BID PRN for PAIN AND/OR INFLAMMATION, #30 TAB Prov:FLORENCIA PURVIS NP 11/05/18 Ferrous Sulfate* (Ferrous Sulfate*) 325 Mg Tabec, 325 MG PO TID, #90 TAB Prov:LUCERO CARLSON 09/16/18 Reported Medications Albuterol Sulfate* (Albuterol Sulfate* Neb) 0.083%-3 Ml Neb, 1.25 MG NEB Q6H PRN for WHEEZING AND SOB, #30 VIAL 10/22/18 Benazepril Hcl* (Benazepril Hcl*) 20 Mg Tablet, 20 MG PO DAILY, #30 TAB 10/22/18 Montelukast Sodium* (Montelukast Sodium*) 10 Mg Tablet, 10 MG PO QHS, #30 TAB 10/22/18 Metformin Hcl* (Metformin Hcl*) 500 Mg Tablet, 500 MG PO WITH BREAKFAST DINNE, #60 TAB 09/09/18 Allergies Allergies: Coded Allergies: No Known Allergy (Unverified , 10/22/18) PMhx/Soc History of Surgery: Yes (RIGHT ANKLE SX, SINUS SX,) Anesthesia Reaction: No Hx Neurological Disorder: No Hx Respiratory Disorders: Yes (ASTHMA) Hx Cardiac Disorders: No Hx Psychiatric Problems: No Hx Miscellaneous Medical Probl: No Hx Alcohol Use: No Hx Substance Use: No (HX IV DRUG USE) Hx Tobacco Use: No FmHx Family History: diabetes Physical Exam Vitals Vital Signs Date Temp Pulse Resp B/P (MAP) Pulse Ox O2 O2 Flow FiO2 Time Delivery Rate 11/05/18 18 150/79 96 Room Air 13:55 (102) 11/05/18 97.8 91 18 157/87 95 09:22 (110) Physical Exam Const: No acute distress Head: Atraumatic Eyes: Normal Conjunctiva ENT: Normal External Ears, Nose and Mouth. Neck: Full range of motion. No meningismus. No lymphadenopathy. Resp: Clear to auscultation bilaterally Cardio: Regular rate and rhythm, no murmurs Abd: Soft, non tender, non distended. Normal bowel sounds Skin: No petechiae or rashes, no bruising Ext: No cyanosis, or edema. Right hand: decreased gip strength 3/5 with right hand, +tinel sign, limited flexion and extension of 4th and 5th fingers- no paresthesia, cap refill <2 sec, +Tammy's nodes, ulnar drift of MCP Neur: Awake and alert Psych: Normal Mood and Affect Results 24 hrs Current Medications Medications Dose Sig/Halle Start Time Status Last (Trade) Ordered Route PRN Stop Time Admin Dose Reason Admin 650 mg ONCE ONCE 11/05/18 DC 11/05/18 Acetaminophen PO 11:30 11:22 (Tylenol 11/05/18 11:31 Tab) Procedures/MDM This is a 63-year-old male patient who presents to emergency room with complaint of mild hand pain and swelling to right hand. Patient was seen at this ER on September 16 and diagnosed with cellulitis of the right hand. Skin is intact, no erythema, normothermic, no signs of continuing cellulitis or infectious process. Patient also denies any fevers or malaise. Patient's hands are characteristic for rheumatoid or osteoarthritis as inflammatory changes are noted to joints of both hands. ED COURSE: The patient was stable throughout ED course. I kept the patient informed of diagnostic imaging results throughout the ED course. d. DIAGNOSTIC IMAGING: Read by radiologist. Xray, Right Hand: IMPRESSION: 1. Decreased soft tissue swelling adjacent to the fifth metacarpal. 2. Mild cortical irregularity within the ulnar base of the fifth proximal phalanx in which a nondisplaced fracture is not excluded. No bony destructive changes. 3. 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 4. Osteoarthrosis of the interphalangeal joints. PROCEDURES: Volar splint placement with sling to right hand.+ CMS after splint placement, good fit, patient provided with instructions on care of splint. MEDICATIONS GIVEN: Tylenol Patient tolerated medication well with no adverse reactions. Patient reported improvement in pain. MDM: Patient presents to the emergency room with concern that prior infection to right hand had not resolved. There are no current indications for infection in the right hand as patient does not have fever, there is no erythema, no cellulitis, normothermia, no swelling. Patient does appear to have inflammatory changes to bilateral hands, worse on the right as supported by observations on x-ray. There may also be a small fracture of the fifth finger where patient is describing a point of pain and subjective swelling. Hand has been placed in splint with instructions on care and keeping splint in place until he follows up with a hand specialist. Patient has been provided with referrals for orthopedic and hand specialist. Patient's extremity symptoms have stabilized while they have been evaluated in the department and are appropriate for outpatient follow up. No evidence of compartment syndrome, neurologic injury, vascular injury, open joint, open fracture, tendon laceration, or foreign body, infectious etiology . DISPOSITION: The patient has been discharge home to follow-up with community physician. Departure Diagnosis: Primary Impression: Hand pain Laterality: right Qualified Codes: M79.641 - Pain in right hand Additional Impressions: Hypertension Fracture of right hand Fracture type: closed Condition: Stable Patient Instructions: R.I.C.E., Osteoarthritis: Coping with Pain, Fracture, Hand (Closed) Referrals: [facility] YOU HAVE RECEIVED A MEDICAL SCREENING EXAM AND THE RESULTS INDICATE THAT YOU DO NOT HAVE A CONDITION THAT REQUIRES URGENT TREATMENT IN THE EMERGENCY DEPARTMENT. FURTHER EVALUATION AND TREATMENT OF YOUR CONDITION CAN WAIT UNTIL YOU ARE SEEN IN YOUR DOCTORS OFFICE WITHIN THE NEXT 1-2 DAYS. IT IS YOUR RESPONSIBILITY TO MAKE AN APPOINTMENT FOR FOLOW-UP CARE. IF YOU HAVE A PRIMARY DOCTOR --you should call your primary doctor and schedule an appointment IF YOU DO NOT HAVE A PRIMARY DOCTOR YOU CAN CALL OUR PHYSICIAN REFERRAL HOTLINE AT IF YOU CAN NOT AFFORD TO SEE A PHYSICIAN YOU CAN CHOSE FROM THE FOLLOWING [facility] CL[facility]ICS [facility] [address] [facility] [facility] [address] [facility] [address] [facility] [address] [facility] [address] [facility]. [facility] [address] [facility] Additional Instructions: Thank you very much for allowing us to participate in your care. Your health and safety is our top priority at [facility]. Call your primary care doctor TOMORROW for an appointment during the next 2-4 days and bring all the information and medications prescribed. Have prescriptions filled and follow precisely the directions on the label. If the symptoms get worse and your provider is unavailable, return to the Emergency Department immediately. KEEP SPLINT IN PLACE FOR COMFORT UNTIL YOU FOLLOW-UP WITH HAND CLINIC. USE TYLENOL TWICE DAILY, USE NAPROSYN FOR WORSENING OF PAIN. FLORENCIA PURVIS NP November 05, 2018 14:18
== END 2018-11-05 14:09 | disposition home or self-care (01) ==
LOC: FTE 09:13
DX: S62.646A Nondisplaced fracture of proximal phalanx of right little finger, initial encounter for closed fracture (principal); I10 Essential (primary) hypertension; J45.909 Unspecified asthma, uncomplicated; E11.9 Type 2 diabetes mellitus without complications; X58.XXXA Exposure to other specified factors, initial encounter; Y92.9 Unspecified place or not applicable; Z79.84 Long term (current) use of oral hypoglycemic drugs
CPT/HCPCS: 29125; 73130; Z7502; Z7610

== ENCOUNTER 2018-12-06 16:55 | Inpatient (IN) | payer OTHER ==
[~2018-12-06] VITALS: Ht 170.2 cm; Wt 76.8 kg
[~2018-12-06 16:55] MED LIST changes: +ACET325T33 PO; +NAPR-985 PO
[2018-12-06] MEDS ORDERED: FUROSEMIDE 40 MG INJ IV STA (17:38)
[2018-12-06] MEDS ORDERED: NITROGLYCERIN 2% 1 GM OINT PKT TD STA (17:38)
[2018-12-06] MEDS ORDERED: LORAZEPAM 2 MG INJ IV ONE (18:00)
[2018-12-06] MEDS ORDERED: SOD CHLORIDE 0.9% 0 ML IV ONE (18:13)
[2018-12-06] MEDS ORDERED: ACETAMINOPHEN 325 MG TAB PO PRN (19:00)
[2018-12-06] MEDS ORDERED: ONDANSETRON 4 MG INJ IV PRN (19:00)
--- NOTE | 2018-12-06 19:05 | ERD ---
ER Documentation Chief Complaint Chief Complaint BILATERAL LOWER LEG SWELLING 3+ FOR 1 WEEK WITH MODERATED SOB. HPI Patient is a 63-year-old male with asthma, hypertension, diabetes, and anemia who presents with shortness of breath and leg swelling. He has bilateral leg swelling that started 2 weeks ago. Is been worsening. He denies bleeding currently but does have a history of nosebleeds in the past. He does appear pale. He says that currently does not take a "water pill". Upon review of old medical record the patient has multiple visits for various complaints. He does not remember the name of his primary doctor. ROS All systems reviewed and are negative except as per history of present illness. Medications Home Meds Active Scripts Acetaminophen* (Tylenol*) 325 Mg Tablet, 2 TAB PO Q6 PRN for PAIN AND OR ELEVATED TEMP, #20 TAB Prov:FLORENCIA PURVIS [employer] PROFESSIONAL 11/05/18 Naproxen* (Naprosyn*) 500 Mg Tablet, 500 MG PO BID PRN for PAIN AND/OR INFLAM MATION, #30 TAB Prov:FLORENCIA PURVIS [employer]IA PROFESSIONAL 11/05/18 Ferrous Sulfate* (Ferrous Sulfate*) 325 Mg Tabec, 325 MG PO TID, #90 TAB Prov:LUCERO CARLSON 09/16/18 Reported Medications Albuterol Sulfate* (Albuterol Sulfate* Neb) 0.083%-3 Ml Neb, 1.25 MG NEB Q6H PRN for WHEEZING AND SOB, #30 VIAL 10/22/18 Benazepril Hcl* (Benazepril Hcl*) 20 Mg Tablet, 20 MG PO DAILY, #30 TAB 10/22/18 Montelukast Sodium* (Montelukast Sodium*) 10 Mg Tablet, 10 MG PO QHS, #30 TAB 10/22/18 Metformin Hcl* (Metformin Hcl*) 500 Mg Tablet, 500 MG PO WITH BREAKFAST DINNE, #60 TAB 09/09/18 Allergies Allergies: Coded Allergies: No Known Allergy (Unverified , 12/06/18) PMhx/Soc History of Surgery: Yes (RIGHT ANKLE SX, SINUS SX,) Anesthesia Reaction: No Hx Neurological Disorder: No Hx Respiratory Disorders: Yes (ASTHMA) Hx Cardiac Disorders: Yes (HTN) Hx Psychiatric Problems: No Hx Miscellaneous Medical Probl: No Hx Alcohol Use: No (former alcohol abuse) Hx Substance Use: No (HX IV DRUG USE) Hx Tobacco Use: Yes Smoking Status: Former smoker FmHx Family History: diabetes Physical Exam Vitals Vital Signs Date Temp Pulse Resp B/P (MAP) Pulse Ox O2 O2 Flow FiO2 Time Delivery Rate 12/06/18 98.9 90 15 158/67 100 Room Air 17:57 (97) 12/06/18 99.0 91 20 145/63 97 17:03 (90) Physical Exam Const: Pale Head: Atraumatic Eyes: Normal Conjunctiva ENT: Normal External Ears, Nose and Mouth. Neck: Full range of motion. No meningismus. Resp: Clear to auscultation bilaterally Cardio: Regular rate and rhythm, no murmurs Abd: Soft, non tender, non distended. Normal bowel sounds Skin: Pale skin Back: No midline or flank tenderness Ext: 2+ pitting edema bilateral lower extremities Neur: Awake and alert Psych: Normal Mood and Affect Result Diagram: 12/06/18 1747 12/06/18 1747 Results 24 hrs Laboratory Tests Test 12/06/18 17:47 White Blood Count 4.3 10^3/ul Red Blood Count 2.07 10^6/ul Hemoglobin 3.6 g/dl Hematocrit 14.0 % Mean Corpuscular Volume 67.6 fl Mean Corpuscular Hemoglobin 17.4 pg Mean Corpuscular Hemoglobin Concent 25.7 g/dl Red Cell Distribution Width 21.8 % Platelet Count 166 10^3/UL Mean Platelet Volume 9.6 fl Immature Granulocytes % 0.500 % Neutrophils % % Segmented Neutrophils % (Manual) 67 % Band Neutrophils % (Manual) 1 % Lymphocytes % % Lymphocytes % (Manual) 23 % Monocytes % % Eosinophils % % Eosinophils % (Manual) 9 % Basophils % % Nucleated Red Blood Cells % 0.5 /100WBC Immature Granulocytes # 0.020 10^3/ul Neutrophils # 10^3/ul Neutrophils # (Manual) 2.9 10^3/ul Band Neutrophils # 0.0 10^3/ul Lymphocytes (Manual) 0.9 10^3/ul Lymphocytes # 10^3/ul Monocytes # 10^3/ul Eosinophils # 10^3/ul Basophils # 10^3/ul Nucleated Red Blood Cells # 10^3/ul Platelet Estimate NORMAL Giant Platelets 1 % Hypochromasia 2+ Ovalocytes 3+ Sodium Level 138 mmol/L Potassium Level 4.6 mmol/L Chloride Level 105 mmol/L Carbon Dioxide Level 25 mmol/L Anion Gap 8 Blood Urea Nitrogen 9 mg/dl Creatinine 0.65 mg/dl Est Glomerular Filtrat Rate mL/min > 60 mL/min Glucose Level 194 mg/dl Calcium Level 8.0 mg/dl Troponin I < 0.012 ng/ml Current Medications Medications Dose Sig/Halle Start Time Status Last (Trade) Ordered Route PRN Stop Time Admin Dose Reason Admin 1 inch ONCE STAT 12/06/18 DC 12/06/18 Nitroglycerin TD 17:38 18:08 12/06/18 17:39 (Nitroglyceri n 2% Oint) Furosemide 40 mg ONCE STAT 12/06/18 DC 12/06/18 (Lasix) IV 17:38 18:08 12/06/18 17:39 Lorazepam 1 mg ONCE ONCE 12/06/18 DC 12/06/18 (Ativan) IV 18:00 18:08 12/06/18 18:01 Sodium 0 ml @ 0 Q0M ONCE 12/06/18 DC Chloride mls/hr IV 18:13 12/06/18 18:14 Ondansetron 4 mg ER BRIDGE 12/06/18 HCl (Zofran PRN IV 19:00 Inj) NAUSEA/VOMITI 12/07/18 18:59 NG 650 mg ER BRIDGE 12/06/18 Acetaminophen PRN PO 19:00 (Tylenol .MILD PAIN 12/07/18 18:59 Tab) 1-3 OR TEMP Procedures/MDM EKG read by me: Rate/Rhythm: Regular rate and rhythm at a normal rate Intervals: Normal Impression: No evidence of ischemia or arrhythmia Chest x-ray shows pulmonary edema per radiology. Patient is a 63-year-old male presents with acute severe anemia with a hemoglobin of 3.6. He also has acute congestive heart failure. The patient was given Lasix 40 mg IV. I have ordered 4 units of packed red blood cells for blood transfusion. I believe his symptoms are likely related to pulmonary edema and anemia. The patient will be admitted to the care of Dr. Rudolph to a telemetry inpatient bed as the patient has [employer] insurance. Critical Care: Time: 35 minutes excluding all billable procedures. Treatments/Evaluations: Close monitoring and treatment of unstable vital signs, cardiorespiratory, and neurologic status, while maintaining tight balance of fluid, respiratory, and cardiac interventions. Departure Diagnosis: Primary Impression: Anemia Anemia type: unspecified type Qualified Codes: D64.9 - Anemia, unspecified Additional Impression: CHF (congestive heart failure) Heart failure type: unspecified Heart failure chronicity: acute Qualified Codes: I50.9 - Heart failure, unspecified Condition: Serious EMILIA GARCIA MD Dec 06, 2018 19:05
[2018-12-06] MEDS ORDERED: ALBUTEROL 0.083% (NEB) 2.5 MG/3 ML AMP NEB PRN (20:00)
[2018-12-06] MEDS ORDERED: ACETAMINOPHEN 500 MG TAB PO PRN (20:00)
[2018-12-06] MEDS ORDERED: GLUCOSE GEL 15 GRAM TUBE PO PRN ×2 (20:30)
[2018-12-06] MEDS ORDERED: GLUCAGON 1 MG INJ IM PRN (20:30)
[2018-12-06] MEDS ORDERED: GLUCOSE GEL 15 GRAM TUBE BUCCAL PRN (20:30)
[2018-12-06] MEDS ORDERED: DEXTROSE 50% 50 ML SYRINGE IV PRN ×2 (20:30)
[2018-12-06 22:47] VITALS: PULSE 85
[2018-12-06] MEDS: MONTELUKAST 10 MG TAB PO SCH (23:12)
[2018-12-06] MEDS: FERROUS SULFATE (EC) 325 MG TAB PO SCH (23:12)
[2018-12-06] MEDS: PANTOPRAZOLE (EC) 40 MG TAB PO SCH (23:12)
[2018-12-06 23:50] VITALS: Ht 170.2 cm; Wt 76.8 kg
[2018-12-07] VITALS (11 sets, daily range): BP systolic 123–156; BP diastolic 68–85; PULSE 66–99; RESP 18–22
--- NOTE | 2018-12-07 08:12 | HP ---
Date/Time of Note Date/Time of Note DATE: 12/07/18 TIME: 08:04 Assessment/Plan VTE Prophylaxis SCD applied (from Nsg): Yes Pharmacological prophylaxis: NA/contraindicated Pharm contraindication: bleeding Lines/Catheters IV Catheter Type (from Nrsg): Saline Lock Assessment/Plan Hospital Course (1) Profound anemia, recurrent , unclear etiology , rule out GI bleeding (2) Chronic hepatitis C with cirrhosis, (3) Portal hypertension, evident on prior CT scans (4) Leg edema, in the setting of pulmonary HTN (5) Chronic diastolic (congestive) heart failure, BNP 480 (6) Pulmonary hypertension, evident on prior TTE 63 m with history of HTN, DM on Metformin , Chronic Hep C , liver cirrhosis , portal hypertension , PAH, chronic D CHF , chronic methadone use who presented with progressive shortness of breath and leg edema . . He was found to be profoundly anemic with the Hb 3.6 . He has had numerous admissions for the same reason with extensive GI work up which has not revealed the etiology behind anemia . He was last scoped by Dr Preciado in 2018 but no clear source of bleeding was identified. Plan - admit to telemetry - GI work up per Dr Cali , he only consented for EGD - transfuse for Hb < 8 , s/p 6 U PRBC - Iron supplementation - Metformin and sliding scale for DM - COntinue home antihypertensive - Will benefit from Hem and ENT referral if GI work up non revealing - PPX: PPI and SCD Problems: (1) Profound anemia (2) Chronic hepatitis C with cirrhosis (3) Portal hypertension (4) Leg edema (5) Chronic diastolic (congestive) heart failure (6) Pulmonary hypertension Result Diagram: 12/07/18 0636 12/06/18 1747 Results 24hrs Laboratory Tests Test 12/06/18 17:47 12/06/18 20:33 12/07/18 00:25 12/07/18 05:44 White Blood Count 4.3 L Red Blood Count 2.07 #L Hemoglobin 3.6 #*L Hematocrit 14.0 #L Mean Corpuscular 67.6 L Volume Mean Corpuscular 17.4 L Hemoglobin Mean Corpuscular 25.7 L Hemoglobin Concen t Red Cell 21.8 H Distribution Width Platelet Count 166 Mean Platelet 9.6 Volume Immature 0.500 H Granulocytes % Neutrophils % Segmented 67 Neutrophils % (Manual) Band Neutrophils 1 % (Manual) Lymphocytes % Lymphocytes % 23 (Manual) Monocytes % Eosinophils % Eosinophils % 9 H (Manual) Basophils % Nucleated Red 0.5 H Blood Cells % Immature 0.020 Granulocytes # Neutrophils # Neutrophils # 2.9 (Manual) Band Neutrophils 0.0 # Lymphocytes 0.9 (Manual) Lymphocytes # Monocytes # Eosinophils # Basophils # Nucleated Red Blood Cells # Platelet Estimate NORMAL Giant Platelets 1 H Hypochromasia 2+ Ovalocytes 3+ Sodium Level 138 Potassium Level 4.6 Chloride Level 105 Carbon Dioxide 25 Level Anion Gap 8 Blood Urea 9 Nitrogen Creatinine 0.65 Est Glomerular > 60 Filtrat Rate mL/min Glucose Level 194 Calcium Level 8.0 L Troponin I < 0.012 < 0.012 Bedside Glucose 245 H Creatine Kinase 68 Creatine Kinase 3.4 Index Creatinine Kinase 2.32 MB (Mass) Lab Scanned BLOOD TRANSFUSIO Report N Test 12/07/18 06:36 12/07/18 06:37 White Blood Count 4.2 L Red Blood Count 2.98 #L Hemoglobin 6.5 #*L Hematocrit 21.9 #L Mean Corpuscular 73.5 L Volume Mean Corpuscular 21.8 #L Hemoglobin Mean Corpuscular 29.7 L Hemoglobin Concen t Red Cell 22.7 H Distribution Width Platelet Count 147 Mean Platelet 9.2 Volume Immature 1.700 H Granulocytes % Neutrophils % 55.4 Lymphocytes % 17.0 Monocytes % 12.3 H Eosinophils % 13.4 H Basophils % 0.2 Nucleated Red 1.2 H Blood Cells % Immature 0.070 H Granulocytes # Neutrophils # 2.4 Lymphocytes # 0.7 L Monocytes # 0.5 Eosinophils # 0.6 H Basophils # 0.0 Nucleated Red 0.1 H Blood Cells # Creatine Kinase 48 Creatine Kinase 4.3 Index Creatinine Kinase 2.08 MB (Mass) Troponin I < 0.012 HPI/ROS Admit Date/Time Admit Date/Time Dec 06, 2018 at 18:50 Hx of Present Illness 63 m with history of HTN, DM on Metformin , Chronic Hep C , liver cirrhosis , portal hypertension , PAH, chronic D CHF , chronic methadone use who presented with progressive shortness of breath and leg edema . He denies CP palpitation , orthopnea , PND . He denies hematochezia , melena , hematemesis . He endorses intermittent epistaxis . He was found to be profoundly anemic with the Hb 3.6 . He has had numerous admissions for the same reason with extensive GI work up which has not revealed the etiology behind anemia . He was last scoped by Dr Preciado in 2018 but no clear source of bleeding was identified. PMH/Family/Social Past Medical History Medications Current Medications Ondansetron HCl (Zofran Inj) 4 mg ER BRIDGE PRN IV NAUSEA/VOMITING; Start 12/06/18 at 19:00; Stop 12/07/18 at 18:59 Acetaminophen (Tylenol Tab) 650 mg ER BRIDGE PRN PO .MILD PAIN 1-3 OR TEMP; Start 12/06/18 at 19:00; Stop 12/07/18 at 18:59 Acetaminophen (Tylenol Tab) 1,000 mg Q6H PRN PO MILD PAIN(1-3)OR ELEVATED TEMP; Start 12/06/18 at 20:00 Albuterol (Proventil 0.083% (Neb)) 1.25 mg Q6H RESP THERAPY PRN NEB WHEEZING AND SOB; Start 12/06/18 at 20:00 Benazepril HCl (Lotensin) 20 mg DAILY PO ; Start 12/07/18 at 09:00 Ferrous Sulfate (Ferrous Sulfate (Ec)) 325 mg TID PO Last administered on 12/06/18at 23:12; Admin Dose 325 MG; Start 12/06/18 at 21:00 Metformin HCl (Glucophage) 500 mg WITH BREAKFAST DINNE PO ; Start 12/07/18 at 07:55 Montelukast Sodium (Singulair) 10 mg QHS PO Last administered on 12/06/18at 23:12; Admin Dose 10 MG; Start 12/06/18 at 21:00 Pantoprazole (Protonix Tab) 40 mg DAILY PO Last administered on 12/06/18at 23:12; Admin Dose 40 MG; Start 12/06/18 at 20:00 Miscellaneous Information 1 ea NOTE XX ; Start 12/06/18 at 20:30 Glucose (Glutose) 15 gm Q15M PRN PO DECREASED GLUCOSE; Start 12/06/18 at 20:30 Glucose (Glutose) 22.5 gm Q15M PRN PO DECREASED GLUCOSE; Start 12/06/18 at 20:30 Dextrose (D50w Syringe) 25 ml Q15M PRN IV DECREASED GLUCOSE; Start 12/06/18 at 20:30 Dextrose (D50w Syringe) 50 ml Q15M PRN IV DECREASED GLUCOSE; Start 12/06/18 at 20:30 Glucagon (Glucagen) 1 mg Q15M PRN IM DECREASED GLUCOSE; Start 12/06/18 at 20:30 Glucose (Glutose) 15 gm Q15M PRN BUCCAL DECREASED GLUCOSE; Start 12/06/18 at 20:30 Coded Allergies: No Known Allergy (Unverified , 12/06/18) Past Surgical History Past Surgical Hx: endoscopy Family History Significant Family History: no pertinent family hx Social History Smoking Status: Former smoker Exam/Review of Systems Vital Signs Vitals Vital Signs Date Temp Pulse Resp B/P (MAP) Pulse Ox O2 O2 Flow FiO2 Time Delivery Rate 12/07/18 98.0 78 22 156/72 96 Room Air 07:27 (100) Intake and Output 12/06/18 12/06/18 12/07/18 1515:00 23:00 07:00 IntakeIntake Total 500 ml 660 ml OutputOutput Total 550 ml BalanceBalance 500 ml 110 ml Exam Exam General: In no acute distress , laying in bed , cooperative , pleasant HEENT, EOM intact, MICHAEL bilat, mucosal membranes moist and pink , no oral lesions, NECK : Supple , not stiffness, , no mass , no carotid bruit Core: S1, S2, NL rate and rhythm, no murmur, no rubs, JVD not elevated, mild LE peripheral edema Lungs: in no respiratory distress, not using the accessory muscles of respiration, clear bilaterally with no rales, no crackles , no wheezing , normal inspiratory to expiratory ratio Abdomen, soft, mildly distended, normal bowel sounds, no tenderness, Extremities without : , cyanosis, calf tenderness, brisk capillary refill Neurological: AOx3, normal speech, CN2-12 intact, no motor or sensory deficit, normal gait and normal coordination RAVIN PRESSLEY MD Dec 07, 2018 08:12
[2018-12-07] MEDS: metFORMIN 500 MG TAB PO SCH ×2 (09:20→17:31)
[2018-12-07] MEDS: PANTOPRAZOLE (EC) 40 MG TAB PO SCH (09:23)
[2018-12-07] MEDS: BENAZEPRIL 20 MG TAB PO SCH (09:24)
[2018-12-07] MEDS: FERROUS SULFATE (EC) 325 MG TAB PO SCH ×3 (09:24→20:20)
[2018-12-07] MEDS ORDERED: ALBUTEROL/IPRATROPIUM (NEB) 3 ML AMP HHN PRN (12:00)
[2018-12-07] MEDS ORDERED: FUROSEMIDE 20 MG INJ IV ONE (16:30)
[2018-12-07] MEDS: METHADONE 10 MG TAB PO SCH (16:49)
[2018-12-07] MEDS: MONTELUKAST 10 MG TAB PO SCH (20:20)
[2018-12-07] MEDS: INSULIN ASPART [NOVOLOG] 3 ML PEN SC SCH (20:25)
[2018-12-08] VITALS (18 sets, daily range): BP systolic 110–146; BP diastolic 61–76; PULSE 60–78; RESP 11–24
[2018-12-08] MEDS ORDERED: GLUCAGON 1 MG INJ ONE (07:00)
[2018-12-08] MEDS: metFORMIN 500 MG TAB PO SCH ×2 (07:48→17:46)
[2018-12-08] MEDS: INSULIN ASPART [NOVOLOG] 3 ML PEN SC SCH ×4 (07:55→21:00)
[2018-12-08] MEDS ORDERED: MAGNESIUM SULFATE 4 GM/100 ML 100 ML IVPB ONE (08:00)
[2018-12-08] MEDS: FERROUS SULFATE (EC) 325 MG TAB PO SCH ×3 (09:09→21:35)
[2018-12-08] MEDS: FUROSEMIDE 20 MG TAB PO SCH (09:10)
[2018-12-08] MEDS: BENAZEPRIL 20 MG TAB PO SCH (09:10)
[2018-12-08] MEDS: PANTOPRAZOLE (EC) 40 MG TAB PO SCH (09:10)
[2018-12-08] MEDS: METHADONE 10 MG TAB PO SCH (09:11)
--- NOTE | 2018-12-08 13:16 | PN ---
Date/Time of Note Date/Time of Note DATE: 12/08/18 TIME: 13:13 Assessment/Plan VTE [place]axis [place] [facility] [place]: 2 [place] [facility] [place] SCD contraindicated: other Pharmacological prophylaxis: NA/contraindicated Pharm contraindication: bleeding Lines/Catheters IV Catheter Type (from [facility]): Saline Lock Assessment/Plan Assessment/Plan 1. recurrent anemia, was profooundly iron deficient on admit in jul, getting large volume transfusions every 2 months await endoscopu 2. cirrohsis secondary to heopatitis c Result Diagram: 12/08/18 0617 12/08/18 0617 Results 24hrs Laboratory Tests Test 12/07/18 17:30 12/07/18 19:39 12/07/18 20:24 12/08/18 05:24 Bedside Glucose 101 98 72 White Blood Count 6.4 # Red Blood Count 4.09 #L Hemoglobin 9.1 #L Hematocrit 30.8 #L Mean Corpuscular 75.3 L Volume Mean Corpuscular 22.2 L Hemoglobin Mean Corpuscular 29.5 L Hemoglobin Concent Red Cell 22.6 H Distribution Width Platelet Count 169 Mean Platelet Volume 9.3 Immature 2.500 H Granulocytes % Neutrophils % 59.7 Lymphocytes % 15.6 Monocytes % 9.8 Eosinophils % 11.9 H Basophils % 0.5 Nucleated Red Blood 0.8 H Cells % Immature 0.160 H Granulocytes # Neutrophils # 3.8 Lymphocytes # 1.0 Monocytes # 0.6 Eosinophils # 0.8 H Basophils # 0.0 Nucleated Red Blood 0.1 H Cells # Activated 33.7 Partial Thromboplast Time Test 12/08/18 06:17 12/08/18 07:53 White Blood Count 5.6 Red Blood Count 3.89 L Hemoglobin 8.6 L Hematocrit 28.5 L Mean Corpuscular 73.3 L Volume Mean Corpuscular 22.1 L Hemoglobin Mean Corpuscular 30.2 L Hemoglobin Concent Red Cell 23.3 H Distribution Width Platelet Count 178 Mean Platelet Volume 10.3 Immature 1.600 H Granulocytes % Neutrophils % 67.0 Lymphocytes % 9.9 L Monocytes % 9.8 Eosinophils % 11.3 H Basophils % 0.4 Nucleated Red Blood 0.9 H Cells % Immature 0.090 H Granulocytes # Neutrophils # 3.8 Lymphocytes # 0.6 L Monocytes # 0.6 Eosinophils # 0.6 H Basophils # 0.0 Nucleated Red Blood 0.1 H Cells # Prothrombin Time 18.1 H Prothrombin Time 1.4 Ratio INR International 1.49 Normalized Ratio Sodium Level 138 Potassium Level 3.6 Chloride Level 104 Carbon Dioxide Level 29 Anion Gap 5 Blood Urea Nitrogen 8 Creatinine 0.69 Est Glomerular > 60 Filtrat Rate mL/min Glucose Level 63 #L Calcium Level 8.3 L Phosphorus Level 4.4 Magnesium Level 1.4 L Total Bilirubin 2.0 H Direct Bilirubin 0.00 Indirect Bilirubin 2.0 H Aspartate Amino 61 H Transf (AST/SGOT) Alanine 52 Aminotransferase (AL T/SGPT) Alkaline Phosphatase 71 Total Protein 6.8 Albumin 2.7 L Globulin 4.10 H Albumin/Globulin 0.65 Ratio Bedside Glucose 135 Subjective 24 Hr Interval Summary Free Text/Dictation upset about not eating in preparation gfor endoscopy Exam/Review of Systems Exam Vitals Vital Signs Date Temp Pulse Resp B/P (MAP) Pulse Ox O2 O2 Flow FiO2 Time Delivery Rate 12/08/18 75 12:05 12/08/18 98.0 19 145/69 95 Room Air 11:23 (94) Intake and Output 12/07/18 12/07/18 12/08/18 1515:00 23:00 07:00 IntakeIntake Total 1130 ml 300 ml OutputOutput Total 800 ml 1800 ml BalanceBalance 330 ml -1500 ml Exam appears fatigued, ctab, rrr Results Results 24hrs Laboratory Tests Test 12/07/18 17:30 12/07/18 19:39 12/07/18 20:24 12/08/18 05:24 Bedside Glucose 101 98 72 White Blood Count 6.4 # Red Blood Count 4.09 #L Hemoglobin 9.1 #L Hematocrit 30.8 #L Mean Corpuscular 75.3 L Volume Mean Corpuscular 22.2 L Hemoglobin Mean Corpuscular 29.5 L Hemoglobin Concent Red Cell 22.6 H Distribution Width Platelet Count 169 Mean Platelet Volume 9.3 Immature 2.500 H Granulocytes % Neutrophils % 59.7 Lymphocytes % 15.6 Monocytes % 9.8 Eosinophils % 11.9 H Basophils % 0.5 Nucleated Red Blood 0.8 H Cells % Immature 0.160 H Granulocytes # Neutrophils # 3.8 Lymphocytes # 1.0 Monocytes # 0.6 Eosinophils # 0.8 H Basophils # 0.0 Nucleated Red Blood 0.1 H Cells # Activated 33.7 Partial Thromboplast Time Test 12/08/18 06:17 12/08/18 07:53 White Blood Count 5.6 Red Blood Count 3.89 L Hemoglobin 8.6 L Hematocrit 28.5 L Mean Corpuscular 73.3 L Volume Mean Corpuscular 22.1 L Hemoglobin Mean Corpuscular 30.2 L Hemoglobin Concent Red Cell 23.3 H Distribution Width Platelet Count 178 Mean Platelet Volume 10.3 Immature 1.600 H Granulocytes % Neutrophils % 67.0 Lymphocytes % 9.9 L Monocytes % 9.8 Eosinophils % 11.3 H Basophils % 0.4 Nucleated Red Blood 0.9 H Cells % Immature 0.090 H Granulocytes # Neutrophils # 3.8 Lymphocytes # 0.6 L Monocytes # 0.6 Eosinophils # 0.6 H Basophils # 0.0 Nucleated Red Blood 0.1 H Cells # Prothrombin Time 18.1 H Prothrombin Time 1.4 Ratio INR International 1.49 Normalized Ratio Sodium Level 138 Potassium Level 3.6 Chloride Level 104 Carbon Dioxide Level 29 Anion Gap 5 Blood Urea Nitrogen 8 Creatinine 0.69 Est Glomerular > 60 Filtrat Rate mL/min Glucose Level 63 #L Calcium Level 8.3 L Phosphorus Level 4.4 Magnesium Level 1.4 L Total Bilirubin 2.0 H Direct Bilirubin 0.00 Indirect Bilirubin 2.0 H Aspartate Amino 61 H Transf (AST/SGOT) Alanine 52 Aminotransferase (AL T/SGPT) Alkaline Phosphatase 71 Total Protein 6.8 Albumin 2.7 L Globulin 4.10 H Albumin/Globulin 0.65 Ratio Bedside Glucose 135 Medications Medication Current Medications Acetaminophen (Tylenol Tab) 1,000 mg Q6H PRN PO MILD PAIN(1-3)OR ELEVATED TEMP; Start 12/06/18 at 20:00 Benazepril HCl (Lotensin) 20 mg DAILY PO Last administered on 12/08/18at 09:10; Admin Dose 20 MG; Start 12/07/18 at 09:00 Ferrous Sulfate (Ferrous Sulfate (Ec)) 325 mg TID PO Last administered on 12/08/18at 09:09; Admin Dose 325 MG; Start 12/06/18 at 21:00 Metformin HCl (Glucophage) 500 mg WITH BREAKFAST DINNE PO Last administered on 12/07/18at 17:31; Admin Dose 500 MG; Start 12/07/18 at 07:55 Montelukast Sodium (Singulair) 10 mg QHS PO Last administered on 12/07/18at 20:20; Admin Dose 10 MG; Start 12/06/18 at 21:00 Pantoprazole (Protonix Tab) 40 mg DAILY PO Last administered on 12/08/18at 09:10; Admin Dose 40 MG; Start 12/06/18 at 20:00 Miscellaneous Information 1 ea NOTE XX ; Start 12/06/18 at 20:30 Glucose (Glutose) 15 gm Q15M PRN PO DECREASED GLUCOSE; Start 12/06/18 at 20:30 Glucose (Glutose) 22.5 gm Q15M PRN PO DECREASED GLUCOSE; Start 12/06/18 at 20:30 Dextrose (D50w Syringe) 25 ml Q15M PRN IV DECREASED GLUCOSE; Start 12/06/18 at 20:30 Dextrose (D50w Syringe) 50 ml Q15M PRN IV DECREASED GLUCOSE; Start 12/06/18 at 20:30 Glucagon (Glucagen) 1 mg Q15M PRN IM DECREASED GLUCOSE; Start 12/06/18 at 20:30 Glucose (Glutose) 15 gm Q15M PRN BUCCAL DECREASED GLUCOSE; Start 12/06/18 at 20:30 Hydralazine HCl (Apresoline) 50 mg Q6H PRN PO SBP GREATER THAN 150 Last administered on 12/07/18at 11:26; Admin Dose 50 MG; Start 12/07/18 at 11:30 Albuterol/ Ipratropium (Duoneb) 3 ml Q6H RESP THERAPY PRN HHN SHORTNESS OF BREATH; Start 12/07/18 at 12:00 Methadone HCl (Methadone) 70 mg DAILY PO Last administered on 12/08/18at 09:11; Admin Dose 70 MG; Start 12/07/18 at 16:20 Insulin Aspart (Novolog Insulin Pen) NOVOLOG *MILD* ALGORITHM WITH MEALS BEDTIME SC ; Start 12/07/18 at 21:00 Furosemide (Lasix) 40 mg DAILY PO Last administered on 12/08/18at 09:10; Admin Dose 40 MG; Start 12/08/18 at 09:00 APRIL VALERIO MD Dec 08, 2018 13:16
--- NOTE | 2018-12-08 14:51 | PREAC ---
Date/Time of Note Date/Time of Note DATE: 12/08/18 TIME: 14:49 Anesthesia Eval and Record Evaluation Time Pre-Procedure Interview DATE: 12/08/18 TIME: 14:49 Age 63 Sex male NPO: 8 hrs Preoperative diagnosis GI bleeding Planned procedure EGD Past Medical History Past Medical History: Includes Cardio: HTN, Dyslipidemia Endo: Diabetes GI: Obesity Surgery & Anesthesia Issues No known issue Meds Anticoagulation: No Beta Jen within 24 hr: No Reason Beta Jen not given: Pt. not on B-Jen Active Scripts Acetaminophen* (Tylenol*) 325 Mg Tablet, 2 TAB PO Q6 PRN for PAIN AND OR ELEVATE D TEMP, #20 TAB Prov:FLORENCIA PURVIS FOURTH MATE 11/05/18 Naproxen* (Naprosyn*) 500 Mg Tablet, 500 MG PO BID PRN for PAIN AND/OR INFLAMMATION, #30 TAB Prov:FLORENCIA PURVIS FOURTH MATE 11/05/18 Ferrous Sulfate* (Ferrous Sulfate*) 325 Mg Tabec, 325 MG PO TID, #90 TAB Prov:LUCERO CARLSON 09/16/18 Reported Medications Albuterol Sulfate* (Albuterol Sulfate* Neb) 0.083%-3 Ml Neb, 1.25 MG NEB Q6H PRN for WHEEZING AND SOB, #30 VIAL 10/22/18 Benazepril Hcl* (Benazepril Hcl*) 20 Mg Tablet, 20 MG PO DAILY, #30 TAB 10/22/18 Montelukast Sodium* (Montelukast Sodium*) 10 Mg Tablet, 10 MG PO QHS, #30 TAB 10/22/18 Metformin Hcl* (Metformin Hcl*) 500 Mg Tablet, 500 MG PO WITH BREAKFAST DINNE, #60 TAB 09/09/18 Current Medications Acetaminophen (Tylenol Tab) 1,000 mg Q6H PRN PO MILD PAIN(1-3)OR ELEVATED TEMP; Start 12/06/18 at 20:00 Benazepril HCl (Lotensin) 20 mg DAILY PO Last administered on 12/08/18at 09:10; Admin Dose 20 MG; Start 12/07/18 at 09:00 Ferrous Sulfate (Ferrous Sulfate (Ec)) 325 mg TID PO Last administered on 12/08/18at 09:09; Admin Dose 325 MG; Start 12/06/18 at 21:00 Metformin HCl (Glucophage) 500 mg WITH BREAKFAST DINNE PO Last administered on 12/07/18at 17:31; Admin Dose 500 MG; Start 12/07/18 at 07:55 Montelukast Sodium (Singulair) 10 mg QHS PO Last administered on 12/07/18at 20:20; Admin Dose 10 MG; Start 12/06/18 at 21:00 Pantoprazole (Protonix Tab) 40 mg DAILY PO Last administered on 12/08/18at 09:10; Admin Dose 40 MG; Start 12/06/18 at 20:00 Miscellaneous Information 1 ea NOTE XX ; Start 12/06/18 at 20:30 Glucose (Glutose) 15 gm Q15M PRN PO DECREASED GLUCOSE; Start 12/06/18 at 20:30 Glucose (Glutose) 22.5 gm Q15M PRN PO DECREASED GLUCOSE; Start 12/06/18 at 20:30 Dextrose (D50w Syringe) 25 ml Q15M PRN IV DECREASED GLUCOSE; Start 12/06/18 at 20:30 Dextrose (D50w Syringe) 50 ml Q15M PRN IV DECREASED GLUCOSE; Start 12/06/18 at 20:30 Glucagon (Glucagen) 1 mg Q15M PRN IM DECREASED GLUCOSE; Start 12/06/18 at 20:30 Glucose (Glutose) 15 gm Q15M PRN BUCCAL DECREASED GLUCOSE; Start 12/06/18 at 20:30 Hydralazine HCl (Apresoline) 50 mg Q6H PRN PO SBP GREATER THAN 150 Last administered on 12/07/18at 11:26; Admin Dose 50 MG; Start 12/07/18 at 11:30 Albuterol/ Ipratropium (Duoneb) 3 ml Q6H RESP THERAPY PRN HHN SHORTNESS OF ARRON ATH; Start 12/07/18 at 12:00 Methadone HCl (Methadone) 70 mg DAILY PO Last administered on 12/08/18at 09:11; Admin Dose 70 MG; Start 12/07/18 at 16:20 Insulin Aspart (Novolog Insulin Pen) NOVOLOG *MILD* ALGORITHM WITH MEALS BEDTIME SC ; Start 12/07/18 at 21:00 Furosemide (Lasix) 40 mg DAILY PO Last administered on 12/08/18at 09:10; Admin Dose 40 MG; Start 12/08/18 at 09:00 Meds reviewed: Yes Allergies Coded Allergies: No Known Allergy (Unverified , 12/06/18) Allergies Reviewed: Yes Labs/Studies Labs Reviewed: Reviewed by anesthesiologist Result Diagram: 12/08/18 0617 12/08/18 0617 Laboratory Tests 12/08/18 06:17 test: N/A Studies: ECG Pre-procedure Exam Last vitals Vital Signs Date Temp Pulse Resp B/P (MAP) Pulse Ox O2 O2 Flow FiO2 Time Delivery Rate 12/08/18 75 12:05 12/08/18 98.0 19 145/69 95 Room Air 11:23 (94) Airway: Adequate mouth opening, Adequate thyromental dist Mallampati: Mallampati II Teeth: Normal Lung: Normal Heart: Normal ASA Physical Status ASA physical status: 3 Emergency: E Planned Anesthetic General/MAC: MAC Planned Pain Management Parenteral pain med Pre-operative Attestations Prior to commencing anesthesia and surgery, the patient was re-evaluated, there was verification of: *The patient's identity *The results of appropriate recent lab work and preoperative vital signs *The above evaluation not changing prior to induction *Anesthetic plan, risk benefits, alternative and complications discussed with patient/family; questions answered; patient/family understands, accepts and wishes to proceed. MARC GRAHAM MD Dec 08, 2018 14:51
--- NOTE | 2018-12-08 15:36 | PAC ---
Date/Time of Note Date/Time of Note DATE: 12/08/18 TIME: 15:35 Post-Anesthesia Notes Post-Anesthesia Note Last documented vital signs Vital Signs Date Temp Pulse Resp B/P (MAP) Pulse Ox O2 O2 Flow FiO2 Time Delivery Rate 12/08/18 75 12:05 12/08/18 98.0 19 145/69 95 Room Air 11:23 (94) Activity: WNL Respiratory function: WNL Cardiovascular function: WNL Mental status: Baseline Pain reasonably controlled: Yes Hydration appropriate: Yes Nausea/Vomiting absent: Yes Comments BP:124/56, P:78, Spo2:100%, T:98,8 MARC GRAHAM MD Dec 08, 2018 15:36
--- NOTE | 2018-12-08 19:06 | CONS ---
DATE OF ADMISSION: 12/06/2018 DATE OF CONSULTATION: 12/07/2018 HISTORY OF PRESENT ILLNESS: A 63-year-old male with a history of hypertension, diabetes mellitus, he patitis C, liver cirrhosis, portal hypertension on methadone, was admitted for shortness of breath an d pedal edema. The patient was evaluated in the ER and found to have hemoglobin of 3.6. He denies o f any abdominal pain, no nausea, no vomiting, no GI bleeding. However, he had an extensive workup in the past and GI bleeding of obscure origin was diagnosed. So the GI consult was called in for the e valuation of upper GI tract. The patient received 4 units of packed cell RBC. PAST MEDICAL HISTORY: Cirrhosis of liver, portal hypertension, multiple episodes of GI bleeding. ALLERGIES: NONE. SOCIAL HISTORY: Former alcohol abuse. Tobacco: Continues to smoke. He has a history of IV drug ab use. REVIEW OF SYSTEMS: Negative. PHYSICAL EXAMINATION GENERAL: Well-built, nourished, not in distress. VITAL SIGNS: Stable. HEENT: Unremarkable. NECK: Supple, no thyromegaly, no lymphadenopathy. CARDIOVASCULAR: No murmur, gallop, or click. LUNGS: Clear. ABDOMEN: Benign. EXTREMITIES: No edema. CENTRAL NERVOUS SYSTEM: Grossly within normal limits. LABORATORY DATA: Hematocrit is 28 after transfusion, WBC is normal, platelet count is 178. INR is 1 .4. CMP is grossly within normal limits. His bilirubin is 2.8. DIAGNOSTIC DATA: The patient's chest x-ray, he had bilateral interstitial opacity. IMPRESSION: 1. Severe anemia, iron deficiency, most probably related to gastrointestinal bleeding. 2. Cirrhosis of liver secondary to hepatitis C. 3. History of nicotine usage. 4. History of alcohol abuse in the past. PLAN: Plan at this point is to proceed with push enteroscopy to identify the source of bleeding. Mo nitor H and H. Continue PPI. Dictated By: LILLIAM AMOS/NTS Conf#: [id number] DID#: [id number] CC: KEI SERRANO MD;*EndCC*
[2018-12-08] MEDS: MONTELUKAST 10 MG TAB PO SCH (21:35)
[2018-12-09] VITALS (10 sets, daily range): BP systolic 134–160; BP diastolic 62–73; PULSE 64–96; RESP 18–20
[2018-12-09] MEDS ORDERED: ZOLPIDEM 5 MG TAB PO PRN (00:30)
[2018-12-09] MEDS: INSULIN ASPART [NOVOLOG] 3 ML PEN SC SCH ×2 (07:55→11:50)
[2018-12-09] MEDS: metFORMIN 500 MG TAB PO SCH (08:26)
[2018-12-09] MEDS: FERROUS SULFATE (EC) 325 MG TAB PO SCH ×2 (08:27→11:53)
[2018-12-09] MEDS: FUROSEMIDE 20 MG TAB PO SCH (08:27)
[2018-12-09] MEDS: PANTOPRAZOLE (EC) 40 MG TAB PO SCH (08:28)
[2018-12-09] MEDS: BENAZEPRIL 20 MG TAB PO SCH (08:28)
[2018-12-09] MEDS: METHADONE 10 MG TAB PO SCH (08:30)
--- NOTE | 2018-12-09 09:56 | CONS ---
Assessment/Plan Assessment/Plan Assessment/Plan (Daily) IMPRESSION: 1. Severe anemia, iron deficiency, most probably related to gastrointestinal bleeding. 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 AVM in the stomach and second part of the duodenum were cauterized with APC 2. Cirrhosis of liver secondary to hepatitis C. 3. History of nicotine usage. 4. History of alcohol abuse in the past. Plan IV iron which is good better absorption than the p.o. iron Capsule endoscopy to evaluate small intestine or AV malformation. This can be done in my office as an outpatient Consultation Date/Type/Reason Admit Date/Time Dec 06, 2018 at 18:50 Initial Consult Date Date/Time of Note DATE: 12/09/18 TIME: 09:54 24 HR Interval Summary Constitutional: no complaints, improved Exam/Review of Systems Exam Vitals Vital Signs Date Temp Pulse Resp B/P (MAP) Pulse Ox O2 O2 Flow FiO2 Time Delivery Rate 12/09/18 96 08:00 12/09/18 98.3 18 137/62 95 Room Air 07:43 (87) 12/08/18 2.0 15:57 Intake and Output 12/08/18 12/08/18 12/09/18 1515:00 23:00 07:00 IntakeIntake Total 100 ml 300 ml 700 ml OutputOutput Total 2600 ml 1000 ml BalanceBalance 100 ml -2300 ml -300 ml Constitutional: alert, oriented, well developed Psych: no complaints, nl mood/affect Head: normocephalic, atraumatic Eyes: nl conjunctiva, EOMI, nl lids, nl sclera, PERRL ENMT: nl external ears & nose, nl lips & teeth, nl nasal mucosa & septum Neck: supple, non-tender Respiratory: clear to auscultation, normal air movement Cardiovascular: regular rate and rhythm, nl pulses Gastrointestinal: soft, nl liver, spleen, non-tender Musculoskeletal: nl extremities to inspection, nl gait and stance Extremities: normal pulses Neurological: CITY MAGISTRATE II-XII intact, nl mental status, nl speech, nl strength Skin: nl turgor; No rash or lesions Lymph: nl lymph nodes Results Result Diagram: 12/09/18 0557 12/08/18 0617 Results 24hrs Laboratory Tests Test 12/08/18 16:32 12/08/18 21:31 12/09/18 05:57 12/09/18 08:04 Bedside Glucose 87 173 90 White Blood Count 5.4 Red Blood Count 4.00 L Hemoglobin 9.1 L Hematocrit 30.3 L Mean Corpuscular 75.8 L Volume Mean Corpuscular 22.8 L Hemoglobin Mean Corpuscular 30.0 L Hemoglobin Concent Red Cell 24.9 H Distribution Width Platelet Count 171 Mean Platelet Volume 9.6 Immature 0.900 H Granulocytes % Neutrophils % 54.4 Lymphocytes % 17.7 Monocytes % 13.0 H Eosinophils % 13.6 H Basophils % 0.4 Nucleated Red Blood 0.6 H Cells % Immature 0.050 H Granulocytes # Neutrophils # 2.9 Lymphocytes # 1.0 Monocytes # 0.7 Eosinophils # 0.7 H Basophils # 0.0 Nucleated Red Blood 0.0 Cells # Ferritin 20.0 Medications Medication Current Medications Acetaminophen (Tylenol Tab) 1,000 mg Q6H PRN PO MILD PAIN(1-3)OR ELEVATED TEMP; Start 12/06/18 at 20:00 Benazepril HCl (Lotensin) 20 mg DAILY PO Last administered on 12/09/18at 08:28; Admin Dose 20 MG; Start 12/07/18 at 09:00 Ferrous Sulfate (Ferrous Sulfate (Ec)) 325 mg TID PO Last administered on 12/09/18at 08:27; Admin Dose 325 MG; Start 12/06/18 at 21:00 Metformin HCl (Glucophage) 500 mg WITH BREAKFAST DINNE PO Last administered on 12/09/18at 08:26; Admin Dose 500 MG; Start 12/07/18 at 07:55 Montelukast Sodium (Singulair) 10 mg QHS PO Last administered on 12/08/18at 21:35; Admin Dose 10 MG; Start 12/06/18 at 21:00 Pantoprazole (Protonix Tab) 40 mg DAILY PO Last administered on 12/09/18 08:28; Admin Dose 40 MG; Start 12/06/18 at 20:00 Miscellaneous Information 1 ea NOTE XX ; Start 12/06/18 at 20:30 Glucose (Glutose) 15 gm Q15M PRN PO DECREASED GLUCOSE; Start 12/06/18 at 20:30 Glucose (Glutose) 22.5 gm Q15M PRN PO DECREASED GLUCOSE; Start 12/06/18 at 20:30 Dextrose (D50w Syringe) 25 ml Q15M PRN IV DECREASED GLUCOSE; Start 12/06/18 at 20:30 Dextrose (D50w Syringe) 50 ml Q15M PRN IV DECREASED GLUCOSE; Start 12/06/18 at 20:30 Glucagon (Glucagen) 1 mg Q15M PRN IM DECREASED GLUCOSE; Start 12/06/18 at 20:30 Glucose (Glutose) 15 gm Q15M PRN BUCCAL DECREASED GLUCOSE; Start 12/06/18 at 20:30 Hydralazine HCl (Apresoline) 50 mg Q6H PRN PO SBP GREATER THAN 150 Last administered on 12/07/18at 11:26; Admin Dose 50 MG; Start 12/07/18 at 11:30 Albuterol/ Ipratropium (Duoneb) 3 ml Q6H RESP THERAPY PRN HHN SHORTNESS OF BREATH; Start 12/07/18 at 12:00 Methadone HCl (Methadone) 70 mg DAILY PO Last administered on 12/09/18at 08:30; Admin Dose 70 MG; Start 12/07/18 at 16:20 Insulin Aspart (Novolog Insulin Pen) NOVOLOG *MILD* ALGORITHM WITH MEALS B EDTIME SC ; Start 12/07/18 at 21:00 Furosemide (Lasix) 40 mg DAILY PO Last administered on 12/09/18at 08:27; Admin Dose 40 MG; Start 12/08/18 at 09:00 Zolpidem Tartrate (Ambien) 5 mg HS PRN PO INSOMNIA Last administered on 12/09/18at 00:25; Admin Dose 5 MG; Start 12/09/18 at 00:30 LILLIAM VELARDE MD Dec 09, 2018 09:56
--- NOTE | 2018-12-09 12:46 | PN ---
Date/Time of Note Date/Time of Note DATE: 12/09/18 TIME: 12:45 Assessment/Plan VTE Prophylaxis Risk score (from Ns)>0 risk: 3 [place] [facility] [place] contraindicated: low risk/ambulating Pharmacological prophylaxis: LMWH Pharm contraindication: low risk/ambulating Lines/Catheters IV C[facility]ter Type (from [facility] Peripheral IV Assessment/Plan Assessment/Plan 1. iron defiiciency anemia related to avms, plan IV fe, d/c home Result Diagram: 12/09/18 0557 12/08/18 0617 Results 24hrs Laboratory Tests Test 12/08/18 16:32 12/08/18 21:31 12/09/18 05:57 12/09/18 08:04 Bedside Glucose 87 173 90 White Blood Count 5.4 Red Blood Count 4.00 L Hemoglobin 9.1 L Hematocrit 30.3 L Mean Corpuscular 75.8 L Volume Mean Corpuscular 22.8 L Hemoglobin Mean Corpuscular 30.0 L Hemoglobin Concent Red Cell 24.9 H Distribution Width Platelet Count 171 Mean Platelet Volume 9.6 Immature 0.900 H Granulocytes % Neutrophils % 54.4 Lymphocytes % 17.7 Monocytes % 13.0 H Eosinophils % 13.6 H Basophils % 0.4 Nucleated Red Blood 0.6 H Cells % Immature 0.050 H Granulocytes # Neutrophils # 2.9 Lymphocytes # 1.0 Monocytes # 0.7 Eosinophils # 0.7 H Basophils # 0.0 Nucleated Red Blood 0.0 Cells # Ferritin 20.0 Test 12/09/18 11:52 Bedside Glucose 122 Subjective 24 Hr Interval Summary Free Text/Dictation no complaints, eating well Exam/Review of Systems Exam Vitals Vital Signs Date Temp Pulse Resp B/P (MAP) Pulse Ox O2 O2 Flow FiO2 Time Delivery Rate 12/09/18 73 12:00 12/09/18 98.3 18 160/70 95 Room Air 10:57 (100) 12/08/18 2.0 15:57 Intake and Output 12/08/18 12/08/18 12/09/18 1515:00 23:00 07:00 IntakeIntake Total 100 ml 300 ml 700 ml OutputOutput Total 2600 ml 1000 ml BalanceBalance 100 ml -2300 ml -300 ml Exam nad, ctab, soft nt Results Results 24hrs Laboratory Tests Test 12/08/18 16:32 12/08/18 21:31 12/09/18 05:57 12/09/18 08:04 Bedside Glucose 87 173 90 White Blood Count 5.4 Red Blood Count 4.00 L Hemoglobin 9.1 L Hematocrit 30.3 L Mean Corpuscular 75.8 L Volume Mean Corpuscular 22.8 L Hemoglobin Mean Corpuscular 30.0 L Hemoglobin Concent Red Cell 24.9 H Distribution Width Platelet Count 171 Mean Platelet Volume 9.6 Immature 0.900 H Granulocytes % Neutrophils % 54.4 Lymphocytes % 17.7 Monocytes % 13.0 H Eosinophils % 13.6 H Basophils % 0.4 Nucleated Red Blood 0.6 H Cells % Immature 0.050 H Granulocytes # Neutrophils # 2.9 Lymphocytes # 1.0 Monocytes # 0.7 Eosinophils # 0.7 H Basophils # 0.0 Nucleated Red Blood 0.0 Cells # Ferritin 20.0 Test 12/09/18 11:52 Bedside Glucose 122 Medications Medication Current Medications Acetaminophen (Tylenol Tab) 1,000 mg Q6H PRN PO MILD PAIN(1-3)OR ELEVATED TEMP; Start 12/06/18 at 20:00 Benazepril HCl (Lotensin) 20 mg DAILY PO Last administered on 12/09/18 08:28; Admin Dose 20 MG; Start 12/07/18 at 09:00 Ferrous Sulfate (Ferrous Sulfate (Ec)) 325 mg TID PO Last administered on 12/09/18at 11:53; Admin Dose 325 MG; Start 12/06/18 at 21:00 Metformin HCl (Glucophage) 500 mg WITH BREAKFAST DINNE PO Last administered on 12/09/18 08:26; Admin Dose 500 MG; Start 12/07/18 at 07:55 Montelukast Sodium (Singulair) 10 mg QHS PO Last administered on 12/08/18 21:35; Admin Dose 10 MG; Start 12/06/18 at 21:00 Pantoprazole (Protonix Tab) 40 mg DAILY PO Last administered on 12/09/18 08:28; Admin Dose 40 MG; Start 12/06/18 at 20:00 Miscellaneous Information 1 ea NOTE XX ; Start 12/06/18 at 20:30 Glucose (Glutose) 15 gm Q15M PRN PO DECREASED GLUCOSE; Start 12/06/18 at 20:30 Glucose (Glutose) 22.5 gm Q15M PRN PO DECREASED GLUCOSE; Start 12/06/18 at 20:30 Dextrose (D50w Syringe) 25 ml Q15M PRN IV DECREASED GLUCOSE; Start 12/06/18 at 20:30 Dextrose (D50w Syringe) 50 ml Q15M PRN IV DECREASED GLUCOSE; Start 12/06/18 at 20:30 Glucagon (Glucagen) 1 mg Q15M PRN IM DECREASED GLUCOSE; Start 12/06/18 at 20:30 Glucose (Glutose) 15 gm Q15M PRN BUCCAL DECREASED GLUCOSE; Start 12/06/18 at 20:30 Hydralazine HCl (Apresoline) 50 mg Q6H PRN PO SBP GREATER THAN 150 Last administered on 12/07/18at 11:26; Admin Dose 50 MG; Start 12/07/18 at 11:30 Albuterol/ Ipratropium (Duoneb) 3 ml Q6H RESP THERAPY PRN HHN SHORTNESS OF BREATH; Start 12/07/18 at 12:00 Methadone HCl (Methadone) 70 mg DAILY PO Last administered on 12/09/18at 08:30; Admin Dose 70 MG; Start 12/07/18 at 16:20 Insulin Aspart (Novolog Insulin Pen) NOVOLOG *MILD* ALGORITHM WITH MEALS BEDTIME SC ; Start 12/07/18 at 21:00 Furosemide (Lasix) 40 mg DAILY PO Last administered on 12/09/18at 08:27; Admin Dose 40 MG; Start 12/08/18 at 09:00 Zolpidem Tartrate (Ambien) 5 mg HS PRN PO INSOMNIA Last administered on 12/09/18at 00:25; Admin Dose 5 MG; Start 12/09/18 at 00:30 APRIL VALERIO MD Dec 09, 2018 12:46
[2018-12-09] MEDS ORDERED: PANT40TA4 PO (12:48)
--- NOTE | 2018-12-09 12:51 | PDOCDIS ---
Discharge Instructions DIAGNOSIS Discharge Diagnosis 1. 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 have regular blood tests to make sure you are not getting anemic or running out of iron 2. do not take NSAID such as aspirin, naproxen, ibuprofen. Use tylenol if requiring pain medication 3. follow up with Dr Dillon 1-2 weeks 4. follow up with primary care 1-2 weeks HOME CARE INSTRUCTIONS: Zeke Diet Instructions: [id number] Reduced Sodium ACTIVITY: [id number] Activity Restrictions: [id number] Slowly Increase Activity FOLLOW UP/APPOINTMENTS Follow-up Plan 1. pcp [address] dillon 1 week APRIL VALERIO MD Dec 09, 2018 12:51
--- NOTE | 2018-12-09 12:53 | DS ---
Date/Time of Note Date/Time of Note DATE: 12/09/18 TIME: 12:51 Discharge Summary Admission/Discharge Info Admit Date/Time Dec 06, 2018 at 18:50 Discharge Date/Time 12/09/18 Discharge Diagnosis 1. 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) Patient Condition: Good Consults dr dillon, GI Procedures egd showing gastric and duodenal avm, s/p laser cautery Hospital Course patient admitted with severe anemia related t iron deficiency, Had transfusion and discharge Hgb is 9 underwent egd and was found to have avm's s/p cautery will be d/c home is advised to have routine blood tests to monitor Hgb and Iron stores Home Meds Active Scripts Pantoprazole* (Pantoprazole*) 40 Mg Tablet., 40 MG PO DAILY for 30 Days, #30 Prov:APRIL VALERIO MD 12/09/18 Acetaminophen* (Tylenol*) 325 Mg Tablet, 2 TAB PO Q6 PRN for PAIN AND OR ELEVATED TEMP, #20 TAB Prov:FLORENCIA PURVIS NP 11/05/18 Naproxen* (Naprosyn*) 500 Mg Tablet, 500 MG PO BID PRN for PAIN AND/OR INFLAMMATION, #30 TAB Prov:FLORENCIA PURVIS NP 11/05/18 Ferrous Sulfate* (Ferrous Sulfate*) 325 Mg Tabec, 325 MG PO TID, #90 TAB Prov:LUCERO CARLSON 09/16/18 Reported Medications Albuterol Sulfate* (Albuterol Sulfate* Neb) 0.083%-3 Ml Neb, 1.25 MG NEB Q6H PRN for WHEEZING AND SOB, #30 VIAL 10/22/18 Benazepril Hcl* (Benazepril Hcl*) 20 Mg Tablet, 20 MG PO DAILY, #30 TAB 10/22/18 Montelukast Sodium* (Montelukast Sodium*) 10 Mg Tablet, 10 MG PO QHS, #30 TAB 10/22/18 Metformin Hcl* (Metformin Hcl*) 500 Mg Tablet, 500 MG PO WITH BREAKFAST DINNE, #60 TAB 09/09/18 Follow-up Plan 1. pcp [address] dillon 1 week Primary Care Provider Not On Staff Doctor Time spent on discharge: > 30 minutes Pending Labs Laboratory Tests Test 12/08/18 16:32 12/08/18 21:31 12/09/18 05:57 12/09/18 08:04 Bedside 87 173 90 Glucose mg/dL (70-220) mg/dL (70-220) mg/dL (70-220) White Blood 5.4 Count 10^3/ul (4.8-1 0.8) Red Blood 4.00 Count 10^6/ul (4.70- 6.10) Hemoglobin 9.1 g/dl (14.0-18. 0) Hematocrit 30.3 % (42.0-52.0) Mean 75.8 Corpuscular fl (82.0-101.0 Volume ) Mean 22.8 Corpuscular pg (29.0-33.0) Hemoglobin Mean 30.0 Corpuscular g/dl (32.0-37. Hemoglobin Conc 0) ent Red Cell 24.9 Distribution % (11.5-14.5) Width Platelet Count 171 10^3/UL (140-4 15) Mean Platelet 9.6 Volume fl (7.4-10.4) Immature 0.900 Granulocytes % % (0.001-0.429 ) Neutrophils % 54.4 % (39.0-77.0) Lymphocytes % 17.7 % (15.0-51.0) Monocytes % 13.0 % (0.0-11.0) Eosinophils % 13.6 % (0.0-7.0) Basophils % 0.4 % (0.0-2.0) Nucleated Red 0.6 Blood Cells % /100WBC (0.0-0 .0) Immature 0.050 Granulocytes # 10^3/ul (0.0-0 .031) Neutrophils # 2.9 10^3/ul (1.6-7 .5) Lymphocytes # 1.0 10^3/ul (0.8-2 .9) Monocytes # 0.7 10^3/ul (0.3-0 .9) Eosinophils # 0.7 10^3/ul (0.0-0 .5) Basophils # 0.0 10^3/ul (0.0-0 .1) Nucleated Red 0.0 Blood Cells # 10^3/ul (0.0-0 .0) Ferritin 20.0 ng/ml (11.1-26 4.0) Test 12/09/18 11:52 Bedside 122 Glucose mg/dL (70-220) APRIL VALERIO MD Dec 09, 2018 12:53
[2018-12-09] MEDS ORDERED: SOD FERRIC GLUC COMPLX 125 MG in SOD CHLORIDE 0.9% 100 ML IVPB ONE (13:00)
== END 2018-12-09 17:12 | disposition home or self-care (01) | DRG 811 ==
LOC: E/R 16:55 → TEL 18:50
PROVIDERS: ADMIT Internal Medicine; ATTEND Internal Medicine
PROC: 30233N1 Transfusion of Nonautologous Red Blood Cells into Peripheral Vein, Percutaneous Approach (ICD-10-PCS; 2018-12-06)
PROC: 0W3P8ZZ Control Bleeding in Gastrointestinal Tract, Via Natural or Artificial Opening Endoscopic (ICD-10-PCS; principal; 2018-12-08 13:30)
DX: D50.9 Iron deficiency anemia, unspecified (principal); K31.811 Angiodysplasia of stomach and duodenum with bleeding; I50.32 Chronic diastolic (congestive) heart failure; K74.69 Other cirrhosis of liver; B19.20 Unspecified viral hepatitis C without hepatic coma; I27.20 Pulmonary hypertension, unspecified; I11.0 Hypertensive heart disease with heart failure; F11.90 Opioid use, unspecified, uncomplicated; Z87.891 Personal history of nicotine dependence; K44.9 Diaphragmatic hernia without obstruction or gangrene
CPT/HCPCS: 36415; 36430; 71045; 80048; 80053; 82550; 82553; 82728; 82962; 83735; 83880; 84100; 84484; 85025; 85610; 85730; 86644; 86850; 86900; 86901; 86920; 87081; 93005; 96374; 96375; J1610; J1815; J1940; J2060; J2916; J7040; P9016

== ENCOUNTER 2019-02-05 12:41 | Inpatient (IN) | payer OTHER ==
[~2019-02-05] VITALS: Ht 182.9 cm; Wt 73.4 kg
[~2019-02-05 12:41] MED LIST changes: -NAPR-985 PO; +PANT40TA4 PO
[2019-02-05] MEDS ORDERED: ALPRAZOLAM 0.25 MG TAB PO ONE (19:00)
[2019-02-05] MEDS ORDERED: BENAZEPRIL 20 MG TAB PO SCH ×2 (19:30→23:12)
[2019-02-05] MEDS ORDERED: ACETAMINOPHEN 325 MG TAB PO PRN ×2 (19:30)
[2019-02-05] MEDS ORDERED: ALBUTEROL 0.083% (NEB) 2.5 MG/3 ML AMP NEB PRN (19:30)
[2019-02-05] MEDS ORDERED: DIPHENHYDRAMINE 50 MG INJ IV ONE (22:00)
[2019-02-05] MEDS ORDERED: BENAZEPRIL 10 MG TAB ONE (22:53)
[2019-02-05 22:59] VITALS: Ht 182.9 cm; Wt 73.4 kg
[2019-02-05 23:06] VITALS: BP 195/90; PULSE 84; RESP 20
[2019-02-05] MEDS: PANTOPRAZOLE (EC) 40 MG TAB PO SCH (23:06)
[2019-02-05] MEDS: MONTELUKAST 10 MG TAB PO SCH (23:06)
[2019-02-05] MEDS: FERROUS SULFATE (EC) 325 MG TAB PO SCH (23:07)
[2019-02-05] MEDS: BENAZEPRIL 10 MG TAB PO SCH (23:20)
[2019-02-05] MEDS ORDERED: GLUCOSE GEL 15 GRAM TUBE BUCCAL PRN (23:45)
[2019-02-05] MEDS ORDERED: GLUCOSE GEL 15 GRAM TUBE PO PRN ×2 (23:45)
[2019-02-05] MEDS ORDERED: GLUCAGON 1 MG INJ IM PRN (23:45)
[2019-02-05] MEDS ORDERED: DEXTROSE 50% 50 ML SYRINGE IV PRN ×2 (23:45)
[2019-02-06] MEDS ORDERED: hydrALAzine 20 MG INJ IV PRN
[2019-02-06] MEDS: INSULIN ASPART [NOVOLOG] 3 ML PEN SC SCH ×6 (01:00→20:56)
[2019-02-06] MEDS ORDERED: DIPHENHYDRAMINE 50 MG INJ IV ONE (01:30)
[2019-02-06] MEDS ORDERED: AMLODIPINE 2.5 MG TAB PO ONE (01:30)
[2019-02-06] MEDS: SOD CHLORIDE 0.9% 1,000 ML IV SCH ×3 (01:40→13:57)
[2019-02-06 02:00] VITALS: BP 138/63; PULSE 86; RESP 20
[2019-02-06 08:00] VITALS: BP 128/58; PULSE 82; RESP 17
[2019-02-06] MEDS: metFORMIN 500 MG TAB PO SCH ×2 (09:24→17:17)
[2019-02-06] MEDS: BENAZEPRIL 10 MG TAB PO SCH (09:25)
[2019-02-06] MEDS: FERROUS SULFATE (EC) 325 MG TAB PO SCH ×3 (09:25→20:55)
[2019-02-06] MEDS: PANTOPRAZOLE (EC) 40 MG TAB PO SCH ×2 (09:25→20:55)
[2019-02-06] MEDS ORDERED: METHADONE (1 MG/ML 5 ML PO UD SYG) PO SCH (14:30)
[2019-02-06 14:39] VITALS: BP 140/64; PULSE 73; RESP 18
[2019-02-06] MEDS: METHADONE 1 MG/ML (ORAL SOLN) PO SCH (16:09)
[2019-02-06 20:30] VITALS: BP 148/71; PULSE 75; RESP 16
[2019-02-06] MEDS: MONTELUKAST 10 MG TAB PO SCH (20:56)
[2019-02-07] VITALS (7 sets, daily range): BP systolic 124–162; BP diastolic 59–76; PULSE 70–80; RESP 12–33
[2019-02-07] MEDS: INSULIN ASPART [NOVOLOG] 3 ML PEN SC SCH ×5 (01:00→17:00)
[2019-02-07] MEDS: SOD CHLORIDE 0.9% 1,000 ML IV SCH (02:48)
[2019-02-07] MEDS: metFORMIN 500 MG TAB PO SCH ×2 (08:00→17:46)
[2019-02-07] MEDS: BENAZEPRIL 10 MG TAB PO SCH (09:00)
[2019-02-07] MEDS: PANTOPRAZOLE (EC) 40 MG TAB PO SCH (09:00)
[2019-02-07] MEDS: METHADONE 1 MG/ML (ORAL SOLN) PO SCH ×2 (09:00→11:42)
[2019-02-07] MEDS: FERROUS SULFATE (EC) 325 MG TAB PO SCH ×2 (09:00→12:02)
[2019-02-07] MEDS ORDERED: ETOMIDATE 20 MG INJ ONE (16:27)
[2019-02-07] MEDS ORDERED: VASOPRESSIN 20 UNITS INJ ONE (16:28)
[2019-02-07] MEDS ORDERED: DEXTROSE 50% 50 ML SYRINGE ONE (16:41)
[2019-02-07] MEDS ORDERED: PROPRANOLOL 10 MG TAB PO SCH (21:00)
[2019-02-07] MEDS ORDERED: INSULIN ASPART [NOVOLOG] 3 ML PEN SC SCH ×2 (21:00)
== END 2019-02-07 20:55 | disposition left against medical advice (07) | DRG 812 ==
LOC: E/R 12:41 → PP2 19:13
PROVIDERS: ADMIT Internal Medicine; ATTEND Internal Medicine
PROC: 30233N1 Transfusion of Nonautologous Red Blood Cells into Peripheral Vein, Percutaneous Approach (ICD-10-PCS; principal; 2019-02-05)
PROC: 0W3P8ZZ Control Bleeding in Gastrointestinal Tract, Via Natural or Artificial Opening Endoscopic (ICD-10-PCS; 2019-02-07)
DX: D50.0 Iron deficiency anemia secondary to blood loss (chronic) (principal); K76.6 Portal hypertension; I50.32 Chronic diastolic (congestive) heart failure; Q27.33 Arteriovenous malformation of digestive system vessel; L29.9 Pruritus, unspecified; B18.2 Chronic viral hepatitis C; K74.69 Other cirrhosis of liver; I11.0 Hypertensive heart disease with heart failure
CPT/HCPCS: 36430; 80048; 80053; 80061; 80076; 81001; 82962; 83010; 83540; 83615; 83735; 84100; 85014; 85018; 85025; 85045; 86078; 86850; 86900; 86901; 86920; J0360; J1200; J1815; J7030; P9016

== ENCOUNTER 2019-03-10 21:45 | Inpatient (IN) | payer OTHER ==
[~2019-03-10] VITALS: Ht 177.8 cm; Wt 73.2 kg
[~2019-03-10 21:45] MED LIST changes: +ACET500C5 PO; +ALBU18HF INHALATION; +HYDR-4011 PO; +IBUP-1561 PO; +LORA1TAB PO; +METH10TA2 PO; +PRED20TA PO
[2019-03-10 21:55] VITALS: Ht 177.8 cm; Wt 73.2 kg
[2019-03-10] MEDS ORDERED: SOD CHLORIDE 0.9% 0 ML IV ONE (22:48)
[2019-03-10] MEDS ORDERED: OCTREOTIDE 50 MCG in SOD CHLORIDE 0.9% 25 ML IVPB STA (22:56)
[2019-03-10] MEDS ORDERED: PANTOPRAZOLE IV 80 MG in SOD CHLORIDE 0.9% 100 ML IV STA (22:56)
[2019-03-10] MEDS ORDERED: CEFTRIAXONE 1 GM/50 ML (PMX) 50 ML IVPB STA (22:56)
[2019-03-10] MEDS ORDERED: OCTREOTIDE 500 MCG in SOD CHLORIDE 0.9% 49 ML IV STA (22:56)
[2019-03-10] MEDS ORDERED: PANTOPRAZOLE IV 80 MG in SOD CHLORIDE 0.9% 100 ML IVPB STA (22:56)
[2019-03-11] MEDS ORDERED: ACETAMINOPHEN 325 MG TAB PO PRN ×2 (03:00→03:30)
[2019-03-11] MEDS ORDERED: ONDANSETRON 4 MG INJ IV PRN ×2 (03:00→03:30)
[2019-03-11] MEDS ORDERED: BISACODYL 10 MG SUPP PR PRN (03:30)
[2019-03-11] MEDS ORDERED: DOCUSATE SODIUM 100 MG CAP PO PRN (03:30)
[2019-03-11] MEDS ORDERED: morphine 2 MG INJ IV PRN (03:30)
[2019-03-11] MEDS ORDERED: NACL 0.9% 3 ML SYG IV SCH (03:30)
[2019-03-11] MEDS ORDERED: hydrALAzine 20 MG INJ IV PRN (03:30)
[2019-03-11] MEDS ORDERED: MAGNESIUM HYDROXIDE 30ML CUP PO PRN (03:30)
[2019-03-11] MEDS ORDERED: ACETAMINOPHEN 650 MG SUPP PR PRN (03:30)
[2019-03-11] MEDS ORDERED: ALBUTEROL 0.083% (NEB) 2.5 MG/3 ML AMP NEB PRN (03:30)
[2019-03-11] MEDS: INSULIN ASPART [NOVOLOG] 3 ML PEN SC SCH ×4 (08:00→20:33)
[2019-03-11] MEDS ORDERED: METHADONE 10 MG TAB PO ONE (08:30)
[2019-03-11] MEDS: FERROUS SULFATE (EC) 325 MG TAB PO SCH ×3 (09:02→20:33)
[2019-03-11] MEDS: BENAZEPRIL 20 MG TAB PO SCH (09:03)
[2019-03-11] MEDS: PANTOPRAZOLE IV 80 MG in SOD CHLORIDE 0.9% 100 ML IV SCH ×2 (09:04→19:16)
[2019-03-11 09:45] VITALS: BP 104/85; PULSE 78; RESP 18
[2019-03-11 16:30] VITALS: BP 180/81; PULSE 71; RESP 20
[2019-03-11] MEDS: LORAZEPAM 1 MG TAB PO PRN (19:16)
[2019-03-11 20:08] VITALS: BP 158/69; PULSE 72; RESP 18
[2019-03-11] MEDS: MONTELUKAST 10 MG TAB PO SCH (20:32)
[2019-03-11 22:30] VITALS: BP 130/72; PULSE 75
[2019-03-12] VITALS (13 sets, daily range): BP systolic 136–187; BP diastolic 59–83; PULSE 58–73; RESP 11–22
[2019-03-12] MEDS: LORAZEPAM 1 MG TAB PO PRN ×2 (05:41→21:51)
[2019-03-12] MEDS: PANTOPRAZOLE IV 80 MG in SOD CHLORIDE 0.9% 100 ML IV SCH ×2 (05:43→15:00)
[2019-03-12] MEDS: DEXTROSE 5%-0.45% NACL 1,000 ML IV SCH (07:38)
[2019-03-12] MEDS: INSULIN ASPART [NOVOLOG] 3 ML PEN SC SCH ×4 (07:50→21:00)
[2019-03-12] MEDS: BENAZEPRIL 20 MG TAB PO SCH (08:33)
[2019-03-12] MEDS: FERROUS SULFATE (EC) 325 MG TAB PO SCH ×3 (08:35→21:51)
[2019-03-12] MEDS ORDERED: LORAZEPAM 2 MG INJ IV PRN (09:30)
[2019-03-12] MEDS ORDERED: METHADONE 10 MG TAB PO ONE (09:30)
[2019-03-12] MEDS ORDERED: MAGNESIUM SULFATE 4 GM/100 ML 100 ML IVPB ONE (12:00)
[2019-03-12] MEDS ORDERED: GLUCOSE GEL 15 GRAM TUBE PO PRN ×2 (18:00)
[2019-03-12] MEDS ORDERED: GLUCOSE GEL 15 GRAM TUBE BUCCAL PRN (18:00)
[2019-03-12] MEDS ORDERED: GLUCAGON 1 MG INJ IM PRN (18:00)
[2019-03-12] MEDS ORDERED: DEXTROSE 50% 50 ML SYRINGE IV PRN ×2 (18:00)
[2019-03-12] MEDS ORDERED: PROPOFOL 40 ML ONE (18:35)
[2019-03-12] MEDS ORDERED: FENTAnyl 50 MCG/ML VIAL ONE (18:35)
[2019-03-12] MEDS ORDERED: LIDOCAINE 100 MG SYRINGE ONE (18:35)
[2019-03-12] MEDS: MONTELUKAST 10 MG TAB PO SCH (21:51)
[2019-03-13] MEDS: PANTOPRAZOLE IV 80 MG in SOD CHLORIDE 0.9% 100 ML IV SCH ×2 (01:24→11:00)
[2019-03-13] MEDS: DEXTROSE 5%-0.45% NACL 1,000 ML IV SCH (03:21)
[2019-03-13 07:25] VITALS: BP 167/81; PULSE 59; RESP 16
[2019-03-13] MEDS: INSULIN ASPART [NOVOLOG] 3 ML PEN SC SCH ×2 (07:50→11:40)
[2019-03-13] MEDS ORDERED: INSULIN ASPART [NOVOLOG] 3 ML PEN SC SCH (07:50)
[2019-03-13] MEDS: FERROUS SULFATE (EC) 325 MG TAB PO SCH ×2 (08:21→12:32)
[2019-03-13] MEDS ORDERED: METHADONE 10 MG TAB PO ONE (09:00)
[2019-03-13] MEDS ORDERED: BENAZEPRIL 20 MG TAB PO SCH (09:00)
[2019-03-13] MEDS: LORAZEPAM 1 MG TAB PO PRN (12:35)
[2019-03-13 14:55] VITALS: BP 160/73; PULSE 70; RESP 18
[2019-03-13 15:50] VITALS: BP 136/64; PULSE 72; RESP 18
== END 2019-03-13 17:39 | DRG 812 ==
LOC: E/R 21:45 → MS1 03-11 02:49 → EDBEDREQ 03-11 07:41 → EDBEDREQSVC 03-11 07:41
PROVIDERS: ADMIT Internal Medicine; ATTEND Internal Medicine
PROC: 30233N1 Transfusion of Nonautologous Red Blood Cells into Peripheral Vein, Percutaneous Approach (ICD-10-PCS; 2019-03-11)
PROC: 0DB68ZX Excision of Stomach, Via Natural or Artificial Opening Endoscopic, Diagnostic (ICD-10-PCS; principal; 2019-03-12 18:00)
DX: D62 Acute posthemorrhagic anemia (principal); K76.6 Portal hypertension; I27.20 Pulmonary hypertension, unspecified; K74.60 Unspecified cirrhosis of liver; B19.20 Unspecified viral hepatitis C without hepatic coma; F41.9 Anxiety disorder, unspecified; I10 Essential (primary) hypertension; K29.00 Acute gastritis without bleeding; E11.9 Type 2 diabetes mellitus without complications; Z79.4 Long term (current) use of insulin; Z91.19 Patient's noncompliance with other medical treatment and regimen
CPT/HCPCS: 36415; 36430; 71045; 76705; 80048; 80053; 81003; 82140; 82962; 83036; 83735; 85014; 85018; 85025; 85610; 86850; 86900; 86901; 86920; 88305; 88312; 93005; 93306; 96365; 96375; 96376; C9113; J0360; J0696; J1815; J2001; J2354; J3010; J7040; J7042; P9016

== ENCOUNTER 2019-03-21 08:43 | Observation (INO) | payer OTHER ==
[~2019-03-21] VITALS: Ht 182.9 cm; Wt 68.9 kg
[~2019-03-21 08:43] MED LIST changes: -ACET325T33 PO; -METF500T24 PO
[2019-03-21] MEDS ORDERED: SOD CHLORIDE 0.9% 500 ML IV STA (09:10)
[2019-03-21] MEDS ORDERED: ALBUTEROL 0.083% (NEB) 2.5 MG/3 ML AMP NEB PRN (12:00)
[2019-03-21] MEDS ORDERED: ONDANSETRON 4 MG INJ IV STA (12:15)
[2019-03-21 13:18] VITALS: Ht 182.9 cm; Wt 68.9 kg
[2019-03-21] MEDS: FERROUS SULFATE (EC) 325 MG TAB PO SCH ×2 (13:31→20:50)
[2019-03-21] MEDS: PANTOPRAZOLE (EC) 40 MG TAB PO SCH (13:31)
[2019-03-21] MEDS: BENAZEPRIL 20 MG TAB PO SCH ×2 (13:31→20:50)
[2019-03-21] MEDS: [UNRECOGNIZED DRUG - REMARK] XX SCH ×2 (13:31→20:00)
[2019-03-21] MEDS: LORAZEPAM 1 MG TAB PO PRN ×2 (13:53→20:50)
[2019-03-21 16:15] VITALS: BP 163/80; PULSE 90; RESP 17
[2019-03-21 19:52] VITALS: BP 178/83; PULSE 76; RESP 18
[2019-03-21] MEDS ORDERED: MONTELUKAST 10 MG TAB PO SCH (21:00)
[2019-03-21] MEDS ORDERED: AMLODIPINE 2.5 MG TAB PO ONE (21:30)
[2019-03-21 23:26] VITALS: BP 135/77; PULSE 69; RESP 18
[2019-03-22 03:47] VITALS: BP 132/66; PULSE 75; RESP 18
[2019-03-22] MEDS: [UNRECOGNIZED DRUG - REMARK] XX SCH ×2 (04:00→12:00)
[2019-03-22] MEDS ORDERED: ACETAMINOPHEN 325 MG TAB PO PRN (07:30)
[2019-03-22 08:06] VITALS: BP 126/63; PULSE 74; RESP 16
[2019-03-22] MEDS ORDERED: METHADONE 10 MG TAB PO SCH (09:00)
[2019-03-22] MEDS: FERROUS SULFATE (EC) 325 MG TAB PO SCH ×2 (09:08→13:00)
[2019-03-22] MEDS: PANTOPRAZOLE (EC) 40 MG TAB PO SCH (09:08)
[2019-03-22] MEDS: BENAZEPRIL 20 MG TAB PO SCH (09:09)
[2019-03-22 11:16] VITALS: BP 164/81; PULSE 70; RESP 17
[2019-03-22] MEDS ORDERED: METHADONE 10 MG TAB PO ONE (15:45)
[2019-03-22 15:55] VITALS: BP 168/76; PULSE 79; RESP 17
== END 2019-03-22 17:06 ==
LOC: E/R 08:43 → TEL 11:02 → EDBEDREQSVC 12:03
PROVIDERS: ADMIT Internal Medicine; ATTEND Internal Medicine
DX: F41.9 Anxiety disorder, unspecified (principal); R53.1 Weakness; D64.9 Anemia, unspecified; I10 Essential (primary) hypertension; J45.909 Unspecified asthma, uncomplicated; E11.9 Type 2 diabetes mellitus without complications; I27.20 Pulmonary hypertension, unspecified; B18.2 Chronic viral hepatitis C; K74.60 Unspecified cirrhosis of liver; Z87.891 Personal history of nicotine dependence; Z59.0 Homelessness
CPT/HCPCS: 71045; 80048; 80053; 80307; 82140; 82962; 83690; 84484; 85025; 85610; 85730; 86850; 86900; 86901; 92610; 93005; 96360; 97161; J2405; J7040; Z7500; Z7502; Z7610; G0378